=== PATIENT | female | born 1950 | race Caucasian/White ===

== ENCOUNTER → 2016-09-16 | Outpatient (CLI) | payer BC ==
[~2016-09-16] MED LIST: ALBUAER19 INH; DULO-24 PO; ESTR1CRE PV; IMT100 PO; LAMO25TA PO; MONT1TAB3 PO; WLLSR/100 PO; ZOLP10TA PO
--- NOTE | 2016-09-16 15:10 | MAMMOGRAPHY REPORT ---
BILATERAL DIGITAL SCREENING MAMMOGRAM WITH CAD: 09/16/2016 CLINICAL HISTORY: Routine screening. Patient has no complaints. TECHNIQUE: Current study was also evaluated with a Computer Aided Detection (CAD) system. Bilatera l CC and MLO views were obtained. COMPARISON: Comparison is made to exams dated: 08/30/2015 mammogram, 07/31/2014 mammogram, 06/14/2013 ma mmogram, 05/31/2012 mammogram, 05/22/2011 mammogram, and 05/21/2010 mammogram - [facility] nt. BREAST COMPOSITION: There are scattered areas of fibroglandular density in both breasts. FINDINGS: No suspicious masses, calcifications, or areas of architectural distortion are noted in e ither breast. There has been no significant interval change compared to prior exams. IMPRESSION: ACR BI-RADS CATEGORY 1: NEGATIVE There is no mammographic evidence of malignancy. A 1 year screening mammogram is recommended. The p atient will receive written notification of the results. Approximately 10% of breast cancers are not detected with mammography. A negative mammographic repor t should not delay biopsy if a clinically suggestive mass is present. Lenora Nunez M.D. /:09/16/2016 14:18:40 Home Visitor: Courtney ANTOINE(Maria G)(M), [facility] letter sent: Normal 1/2 BI-RADS Code: ACR BI-RADS Category 1: Negative
== END | disposition home or self-care (01) ==
LOC: C.MAMM 13:04
PROVIDERS: ATTEND Obstetrics & Gynecology
DX: Z12.31 Encounter for screening mammogram for malignant neoplasm of breast (principal)

== ENCOUNTER → 2017-12-09 | Outpatient (CLI) | payer OTHER ==
[~2017-12-09] MED LIST changes: -ESTR1CRE PV; -ZOLP10TA PO
--- NOTE | 2017-12-09 11:10 | DIAGNOSTIC IMAGING REPORT ---
LEG LENGTH STUDY (WHOLE LEG) CLINICAL HISTORY: LEG LENGTH DISCREPANCY mildly COMPARISON STUDY: None FINDINGS: 1. Maximum right leg length 84.9 cm. Maximum leg length on the left 86.0 cm. Discrepancy is 11 mm with the right leg being shorter than the left. Left femoral length is 47.1 cm. The right measures 46.2 cm. Differences 9 mm. IMPRESSION: 1. maximum total left leg length 86.0 cm. 2. Maximum total right leg length 84.9 cm. 3. Maximum discrepancy is 1.1 cm. The bulk of this discrepancy is a differential of the right femoral length which measures 9 mm shorter than that of the left. The above report was generated using voice recognition software. It may contain grammatical, syntax or spelling errors. Electronically signed by: Rustam Pritchard M.D. 12/09/2017 11:09 AM Dictated Date/Time: 12/09/2017 11:03 AM
== END | disposition home or self-care (01) ==
LOC: C.RADBC 10:49
PROVIDERS: ATTEND Physician Assistant
DX: M21.751 Unequal limb length (acquired), right femur (principal)

== ENCOUNTER 2018-04-01 05:01 | Inpatient (IN) ==
--- NOTE | 2018-03-11 10:48 | Anesthesiology Consultation ---
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 Cortez; no further evaluation needed prior regarding this but for anesthesia to note AM DOS. - ? syncopal episodes prior to 12/2017 (noted in 2013 per chart review). Patient unable to recall the events leading up to the 12/2017 fall; patient was kept overnight to monitor patient on hospital monitor to evaluate for arrhythmias (no mention of abnormalities noted per [facility] discharge summary). Intermittent episodes of syncope noted per chart review (evaluated by cardio/neuro in 2013- etiology felt to be vasovagal; ECHO was done 2013 and noted to not have any significant abnormalities"). Patient sustained olecranon fracture s/p fall . Possible very small subdural bleed on CT 01/12 (recommendation was for further evaluation with followup MRI 01/11/18 which did not show any acute intracranial findings/subdural bleed; did redemonstrate scalp hematoma). S/P olecranon fracture ORIF 01/24/18 at [facility] without issue. - PCP= 01/20/18= seen prior to olecranon fracture ORIF done 01/2018; "from a general medical standpoint, patient cleared for surgery." Chart Review Chart Review: Acceptable Risk for Surgery and Patient NOT seen in Pre Admission Testing Teaching & Discussion Pre-Anesthesia Teaching/Discussion Notes: Instructed NPO after midnight before surgery,except medications with 15 cc of water. Medication instructions provided according to the PAT guidelines. History Surgery Operation Date: 04/01/18 10:40 Proposed Procedures p Right Total Hip Arthroplasty - Yaya Zarate MD Height/Weight Height: 5 ft 8 in Weight: 58.5 kg Allergies Allergy/AdvReac Type Severity Reaction Status Date / Time Sulfa (Sulfonamide Allergy Mild UNKNOWN Verified 03/10/18 12:29 Antibiotics) Medications Home Medications Medication Instructions Recorded Confirmed Last Taken biotin 5,000 mcg PO QAM 01/21/18 03/10/18 01/23/18 09:00 bupropion HCl [Wellbutrin SR] 100 mg PO QAM 01/21/18 03/10/18 01/24/18 08:30 duloxetine 40 mg PO QAM 01/21/18 03/10/18 01/24/18 08:00 flaxseed oil 1,400 mg MISCELLANEOUS QAM 01/21/18 03/10/18 01/23/18 09:00 lamotrigine [Lamictal] 25 mg PO QAM 01/21/18 03/10/18 01/24/18 08:00 montelukast [Singulair] 10 mg PO QAM PRN 01/21/18 03/10/18 Unknown sumatriptan succinate [Imitrex 4 mg SUBCUT QDD PRN 01/21/18 03/10/18 Unknown STATdose Refill] sumatriptan succinate [Imitrex] 100 mg PO QDD PRN 01/21/18 03/10/18 01/20/18 17: 00 vitamin B complex 1 tab PO QAM 01/21/18 03/10/18 01/23/18 09:00 albuterol sulfate 1 puff INHALATION Q6H PRN 03/10/18 03/10/18 Unknown rqxhqtf-khwyjzdisdiev-rvhhfxnz 2 tab PO Q6H PRN 03/10/18 03/10/18 Unknown [Excedrin Migraine] calcium carbonate-vitamin D3 1 tab PO QAM 03/10/18 03/10/18 Unknown [Calcium 500 + D] oxycodone-acetaminophen 1 tab PO Q6H PRN 03/10/18 03/10/18 Unknown Past Medical History Medical History Asthma STABLE Migraines ON LAMICTAL; DENIES SEIZURE HISTORY Anxiety Osteoarthritis Depression GERD (gastroesophageal reflux disease) CONTROLLED Hx of endometriosis Syncope ? SYNCOPAL EPISODE PRIOR TO 12/2017 FALL; PATIENT UNABLE TO RECALL EVENTS LEADING UP TO FALL FROM STAIRS PER [facility] DISCHARGE SUMMARY. KEPT PATIENT OVERNIGHT TO MONITOR PATIENT ON MONITOR FOR ARRHYTHMIAS (NO MENTION OF ABNORMALITIES NOTED PER [facility] DISCHARGE SUMMARY). INTERMITTENT EPISODES OF SYNCOPE NOTED PER CHART REVIEW (PER CARDIO EVALUATION IN 2013, FELT TO BE VASOVAGAL ETIOLOGY; ECHO WAS ORDERED AND NOTED TO HAVE NO SIGNIFICANT ABNORMALITIES IN 2013). NO ISSUES SINCE ADMISSION PER PATIENT AT PAT VISIT Valvular disease MILD TR/MR Past Family History Family History Father Family hx of colon cancer Other Family history non-contributory Past Surgical History Surgical History History of hysterectomy TOTAL Status post left hip replacement History of open reduction and internal fixation (ORIF) procedure RIGHT OLECRANON ORIF= 01/24/18= GRADE 1 VIEW, MAC#3, ETT 7.0 AT [facility]* History of tonsillectomy History of total shoulder replacement RIGHT Past Anesthesia History No Hx of Anesthesia Complications Patient denies family history of issues with anesthesia complications. History of PONV No Motion Sickness Screening History of Motion Sickness: No Social History Smoking Status: Never smoker Do You Dip or Chew Tobacco: No Hx Alcohol Use: Yes Alcohol type: beer, wine and hard liquor alcohol intake frequency: a few times a month Hx Substance Use: No substance use type: prescription drug Exercise / Class Metabolic Activity II 4-5 Yardwork/Stairs/Walk up hill Review of Systems Patient reports RUE s/p fracture repair. Patient denies chest pain, shortness of breath, dyspnea on exertion, wheezing, palpitations. Physical Exam Vital Signs VITALS BP 130/88 P 85 TEMP 98.5 RESP 20 SP02 95%RA Patient advised to followup with PCP regarding elevated BP. Full neck and c-spine range of motion. Full TMJ range of motion. TMD 2 finger breaths (small chin) Mallampati Score 3 Dentition: intact Lungs: clear throughout to auscultation Cardiac: regular rate and rhythm, no murmurs noted Spine: normal Carotid arteries: negative bruit Extremities: no edema Testing Electrocardiogram Date: 01/11/18 Findings: + NSR @ (81) Echocardiogram Date: 08/16/13 EF 60-65%, No RWMA. Mild TR/MR. Other Testing Chest CT= 01/11/18 = No acute intrathoracic abnormality identified. No pneumothorax or acute displaced rib fracture identified. Healed remote fracture deformities of the posterior left eighth, ninth and tenth ribs. Multiple opacified venous collateral vessels about the left upper chest and lower neck with apparent high-grade stenosis about the distal left subclavian vein. Laboratory Results 03/11/18 10:57 03/11/18 10:57 Blood Type O Positive 03/11/18 10:57 Antibody Screen NEGATIVE 03/11/18 10:57 PT 11.3 Seconds (9.0-12.0) 03/11/18 10:57 INR 1.1 (0.9-1.1) 03/11/18 10:57 APTT 26.4 Seconds (21.0-31.0) 03/11/18 10:57
--- NOTE | 2018-03-11 10:55 | PAT Medication Instructions ---
Medication Instructions Date of Service March 11, 2018 Home Medications biotin 5,000 mcg PO QAM bupropion HCl [Wellbutrin SR] 100 mg PO QAM duloxetine 40 mg PO QAM flaxseed oil 1,400 mg MISCELLANEOUS QAM lamotrigine [Lamictal] 25 mg PO QAM montelukast [Singulair] 10 mg PO QAM PRN sumatriptan succinate [Imitrex 4 mg SUBCUT QDD PRN sumatriptan succinate [Imitrex] 100 mg PO QDD PRN vitamin B complex 1 tab PO QAM 01/21/18 albuterol sulfate 1 puff INHALATION Q6H PRN [id number]-zwfqgpltdtsup-cpdaqoqa 2 tab PO Q6H PRN calcium carbonate-vitamin D3 1 tab PO QAM oxycodone-acetaminophen 1 tab PO Q6H PRN Per surgeon's instructions ovunyqf-dkcsmiigcmiyg-yvqfvktl 2 tab PO Q6H PRN Hold 2 weeks prior to surgery flaxseed oil 1,400 mg MISCELLANEOUS QAM biotin 5,000 mcg PO QAM Hold the morning of surgery calcium carbonate-vitamin D3 1 tab PO QAM vitamin B complex 1 tab PO QAM montelukast [Singulair] 10 mg PO QAM PRN Take morning of surgery Take the following medication the morning of surgery with a sip of water, OTHERWISE NOTHING TO EAT OR DRINK AFTER MIDNIGHT: bupropion HCl [Wellbutrin SR] 100 mg PO QAM duloxetine 40 mg PO QAM lamotrigine [Lamictal] 25 mg PO QAM sumatriptan succinate [Imitrex 4 mg SUBCUT QDD PRN (if needed) sumatriptan succinate [Imitrex] 100 mg PO QDD PRN (if needed) albuterol sulfate 1 puff INHALATION Q6H PRN (if needed) oxycodone-acetaminophen 1 tab PO Q6H PRN (okay to take up to 4 hours prior to surgery if needed) Take evening before surgery sumatriptan succinate [Imitrex 4 mg SUBCUT QDD PRN(if needed) sumatriptan succinate [Imitrex] 100 mg PO QDD PRN (if needed) albuterol sulfate 1 puff INHALATION Q6H PRN (if needed) oxycodone-acetaminophen 1 tab PO Q6H PRN (if needed) Other Notes If you have any questions please call us at [phone] or [phone] or [phone] or [phone]
[2018-03-11 12:38] LABS: Basophils # (auto) 0.08 K/uL (0-0.2); Basophils % (auto) 1.8 %; Eosinophils # (auto) 0.17 K/uL (0-0.5); Eosinophils % (auto) 3.8 %; Hematocrit (blood only) 42.2 % (37-47); Hemoglobin 13.8 g/dL (12.0-16.0); Immature Granulocytes # (auto) 0.01 K/uL (0.00-0.02); Immature Granulocytes % (auto) 0.2 %; Lymphocytes # (auto) 1.58 K/uL (1.2-3.4); Mean Corpuscular Hgb Conc 32.7 g/dL (32-36); Mean Corpuscular Volume 92.1 fL (80-100); Mean Platelet Volume 10.5 fL (7.4-10.4); Monocytes # (auto) 0.31 K/uL (0.11-0.59); Monocytes % (auto) 6.9 %; Neutrophils # (auto) 2.36 K/uL (1.4-6.5); Neutrophils % (auto) 52.3 %; Platelet Count 303 K/uL (130-400); RDW Standard Deviation 43.9 fL (36.4-46.3); Red Blood Count 4.58 M/uL (4.2-5.4); White Blood Count 4.51 K/uL (4.8-10.8)
[2018-03-11 12:45] LABS: BUN Creatinine Ratio 21.5 (10-20); Blood Urea Nitrogen 15 mg/dl (7-18); C Reactive Protein < 0.29 mg/dl (0-0.29); Calcium 9.2 mg/dl (8.5-10.1); Carbon Dioxide 30 mmol/L (21-32); Chloride 105 mmol/L (98-107); Est GFR (African American) 104.6; Est GFR (Non-African American) 90.3; Glucose 84 mg/dl (70-99); Potassium 3.7 mmol/L (3.5-5.1); Sodium 141 mmol/L (136-145)
[2018-03-11 12:57] LABS: INR 1.1 (0.9-1.1); Partial Thromboplastin Time 26.4 Seconds (21.0-31.0); Prothrombin Time 11.3 Seconds (9.0-12.0)
--- NOTE | 2018-03-26 10:33 | History and Physical Report ---
DATE OF ADMISSION: 04/01/2018 CHIEF COMPLAINT: Right hip pain. HISTORY OF PRESENT ILLNESS: The patient is a 67-year-old white female who presents for surgical treatment of right hip. She is referred by my partner, Dr. Baregr who recently treated for an elbow fracture. She has about a 3-year history of increasing right hip pain and discomfort. She has been through extensive conservative treatment including various medicines as well as pain clinic management. She had multiple different injections in her back and spine and hip area without much relief. She describes mostly buttock pain, lateral hip pain, groin pain radiating down into her thigh to her knee. The more she walks, the more it hurts. She limps pretty much all the time. She has nighttime discomfort. She has difficulty putting her shoes and socks on. She has noticed a significant leg length inequality. She now would like to have her hip fixed. Of note, the patient does have a history of a left hip replacement by Dr. Manning 10 years ago. She feels like she does have a significant leg length inequality. She did have one dislocation 2 years ago without further episodes of instability. She has been careful with this. The patient also had her recent fall and broke her elbow and had surgery done by Dr. Barger for an olecranon fracture. She is about 2 months out from that and recovered pretty well. PAST MEDICAL HISTORY: 1. Asthma. 2. Anxiety/depression. 3. Back pain. PAST SURGICAL HISTORY: Previous surgeries include: 1. Ovary and uterus removal in 2002. 2. Left hip replacement done by Dr. Manning, 04/12/2008. 3. Right elbow triceps repair done by Dr. Barger, 01/24/2018. 4. Right shoulder replacement done by Dr. Chahal, 06/08/2014. ALLERGIES: SULFA. CURRENT MEDICINES: 1. Lamictal 25 mg. 2. Wellbutrin 100 mg. 3. Fluoxetine 40 mg a day. 4. Singulair 10 mg a day. 5. Sumatriptan 100 mg as needed for headache. SOCIAL HISTORY: A 67-year-old white female. She is . Lives alone. Does not smoke. One drink per week. FAMILY HISTORY: Significant for heart disease and blood clots, multiple myeloma and colon cancer. REVIEW OF SYSTEMS: Negative for diabetes, neurologic problems, vascular problems or bleeding disorders. No history of DVT or PE. PHYSICAL EXAMINATION: GENERAL: Reveals a healthy, pleasant, thin female. Looks to be in good health. HEENT: Benign. NECK: Supple. No lymphadenopathy. LUNGS: Clear to auscultation. HEART: Regular rate and rhythm. ABDOMEN: Soft, nontender, nondistended. EXTREMITIES: Grossly neurovascularly intact except as follows: Examination of the right hip reveals patient walks with an antalgic gait. She does have about a cm leg length discrepancy, right side shorter than left. She seems to have a little bit of pelvic obliquity as well. She has a very stiff hip with internal rotation to -10, external rotation at 20 degrees. Negative straight leg raise. She is neurologically intact. X-RAYS: X-rays of the right hip were reviewed. Shows advanced right hip DJD. She has complete loss of her joint space with cystic changes of the femoral and acetabular side. ASSESSMENT: A 67-year-old white female now about 2 months out from a triceps repair for olecranon fracture with advanced right hip degenerative joint disease. She has failed conservative treatment and would like to have her right hip replaced. PLAN: We are going to proceed with right total hip replacement. The risks and benefits of this procedure were explained to the patient including but not limited to DVT, PE, , infection, neurological injury, vascular injury, bleeding problem, pain, limited range of motion, stiffness, failure to relieve her symptoms, incomplete relief of symptoms, need for further surgery in future, fracture, leg length inequality, nerve palsy, dislocation, etc. The patient understands and desires to proceed. Informed consent was obtained. We will try and make her leg lengths as equal as possible. She does have some pelvic obliquity which makes things a little bit more challenging. She did have an episode of instability in the left hip, but nothing since this episode 2 years ago. We will do the best we can stabilize her hip as well. As far as discharge plans, she is planning to be discharged to home with some home health and some friends' assistance.
[2018-04-01] MEDS ORDERED: TRANEXAMIC ACID 1,000 MG **IV Pre-op IV SCH (06:00)
[2018-04-01] MEDS ORDERED: ACETAMINOPHEN 500 MG TAB PO SCH (06:00)
[2018-04-01] MEDS ORDERED: METOCLOPRAMIDE HCL 10 MG TABLET PO SCH (06:00)
[2018-04-01] MEDS ORDERED: CEFAZOLIN 2000MG 2,000 MG/15 ML SYR IV SCH (06:00)
[2018-04-01] MEDS ORDERED: SCOPOLAMINE 1.5 MG TDSY TD SCH (06:00)
[2018-04-01] MEDS ORDERED: GABAPENTIN 300 MG PO SCH (06:00)
[2018-04-01] MEDS ORDERED: FAMOTIDINE 20 MG TAB PO SCH (06:00)
[2018-04-01] MEDS ORDERED: LR 60ML/HR IV SCH (06:00)
[2018-04-01] MEDS: LR 500ML BOLUS, THEN 15ML/HR IV SCH ×4 (06:06→21:40)
[2018-04-01] MEDS ORDERED: MIDAZOLAM HCL 1 MG/ML 2ML VIAL ONE ×2 (06:23→07:15)
[2018-04-01] MEDS ORDERED: MoRPHine SULFATE PF 1 MG/ML 10 ML AMP/VIAL ONE (06:24)
[2018-04-01] MEDS ORDERED: BUPIVACAINE 0.5 % 5 MG/1 ML PF 10ML VIAL ONE (06:29)
[2018-04-01] MEDS ORDERED: BACITRACIN INJ 50,000 UNIT VIAL ONE (06:36)
[2018-04-01] MEDS ORDERED: BUPIVACAINE/EPINEPHRINE 0.5% MPF 1:200,000 30 ML VIAL ONE (06:36)
--- NOTE | 2018-04-01 06:52 | History & Physical Bridge Note ---
Date of Service April 01, 2018 History & Physical Bridge Note I have examined the patient, reviewed the History & Physical and in the interval since the performance of the History & Physical I have noted the following changes of clinical significance: no changes noted
[2018-04-01] MEDS ORDERED: LACTATED RINGER'S 500 ML IV PRN (06:53)
[2018-04-01] MEDS ORDERED: NALBUPHINE HCL INJ 10 MG/ML AMP IV PRN (06:53)
[2018-04-01] MEDS ORDERED: NALOXONE HCL 0.08 MG in SYRINGE 1.8 ML IV PRN (06:53)
[2018-04-01] MEDS ORDERED: NALOXONE HCL 1 MG in SODIUM CHLORIDE 0.9% 1000ML 1,000 ML IV PRN (06:53)
[2018-04-01] MEDS ORDERED: ePHEDrine sulfate 50 MG/ML AMP IV PRN (06:53)
[2018-04-01] MEDS ORDERED: MEPERIDINE HCL 25 MG/ML CARP IV PRN (06:53)
[2018-04-01] MEDS ORDERED: DiphenhydrAMINE HCL 50 MG/ML VIAL IV PRN (06:53)
[2018-04-01] MEDS ORDERED: MoRPHine SULFATE PF 1 MG/ML 10 ML AMP/VIAL INT SPINAL ONE (06:53)
[2018-04-01] MEDS ORDERED: ONDANSETRON INJ 2 MG/ML 2 ML VIAL IV PRN (06:53)
[2018-04-01] MEDS ORDERED: NALOXONE HCL 0.4 MG/1 ML VIAL/CARP IV PRN (06:53)
[2018-04-01] MEDS ORDERED: NO NARCOTICS OR SEDATIVES SCH (07:00)
[2018-04-01] MEDS ORDERED: SODIUM CHLORIDE 0.9% 1000ML 1,000 ML IV SCH (07:00)
[2018-04-01] MEDS ORDERED: LIDOCAINE HCL 2% 2 ML VIAL/AMP(20MG/ML) INFIL ONE (07:33)
[2018-04-01] MEDS ORDERED: PROPOFOL IV EMULSION 10 MG/ML 20 ML VIAL IV ONE (07:33)
[2018-04-01] MEDS ORDERED: fentaNYL citrate 100 MCG/2 ML VIAL ONE (07:34)
[2018-04-01] MEDS ORDERED: PHENYLEPHRINE 100MCG/ML 5ML SYR ONE (08:10)
--- NOTE | 2018-04-01 08:36 | Post Operative Brief Note ---
Immediate Post Op Note v1 Date of Surgery April 01, 2018 Pre & Post Diagnosis Operation Date: 04/01/18 07:00 Pre-Op Diagnosis: Right Hip Degenerative Joint Disease Post-Op Diagnosis: Right Hip Degenerative Joint Disease Procedure Operation Date: 04/01/18 07:00 Actual Procedures p Right Total Hip Replacement(Right) - Yaya Zarate MD Surgeon Yaya Zarate MD [id number] Armor Crewman [place], PAC Estimated Blood Loss 300 Findings Consistent with Post-Op Diagnosis Fluids 1600 cc Specimens Right Femoral Head Drains Wilson Catheter Anesthesia Type Spinal MAC Complications Small Crack of Medial Calcar treated with Dall-Miles Cable. Disposition Accompanied Patient To Recovery: Yes Disposition: Recovery Room
--- NOTE | 2018-04-01 09:32 | XRay Report ---
AP PELVIS, CROSSTABLE LATERAL RIGHT HIP History: Right total hip arthroplasty. Degenerative arthritis. Postop. FINDINGS: The patient is status post a right total hip arthroplasty. The hardware is intact. No fract ure or dislocation. Proximal femoral cerclage wire is in place. Evidence for prior left total hip art hroplasty. IMPRESSION: Right total hip arthroplasty. No evidence for hardware complication Electronically signed by: Pedro Pierce M.D. 04/01/2018 9:31 AM
--- NOTE | 2018-04-01 10:25 | Anesthesiology Progress Note ---
Date of Service April 01, 2018 Anesthesia Post Procedure Vital Signs Vital Signs: Temp Pulse Pulse Resp BP BP Pulse Ox 04/01/18 10:15 72 20 121/77 100 04/01/18 10:00 72 14 115/69 100 04/01/18 09:45 97.3 F L 74 16 111/72 100 04/01/18 09:35 70 12 102/69 100 04/01/18 09:25 72 18 105/66 100 04/01/18 09:15 71 21 107/65 100 04/01/18 09:05 71 18 100/60 100 04/01/18 08:55 70 18 94/71 L 99 04/01/18 08:45 70 12 104/57 L 100 04/01/18 08:35 97.2 F L 70 16 89/63 L 98 04/01/18 05:44 98.1 F 80 18 137/77 97 Pain Intensity Right Hip: Pain Intensity: 0 Notes Mental Status: alert / awake / arousable and participated in evaluation Patient Amnestic to Procedure: Yes Nausea / Vomiting: adequately controlled Pain: adequately controlled Airway Patency, RR, SpO2: stable & adequate BP & HR: stable & adequate Hydration State: stable & adequate Neuraxial Anesthesia: was administered and sensory block is resolving Anesthetic Complications: no major complications apparent and Pt Satisfied with anesthetic care
[2018-04-01] MEDS ORDERED: ALBUTEROL HFA 8 GM INHALER INH PRN (10:39)
[2018-04-01] MEDS ORDERED: METOCLOPRAMIDE HCL INJ 5 MG/ML 2 ML VIAL IV PRN (10:39)
[2018-04-01] MEDS ORDERED: ALUMINUM/MAGNESIUM SUSP 30 ML UDC PO PRN (10:39)
[2018-04-01] MEDS ORDERED: MONTELUKAST SODIUM 10 MG TABLET PO PRN (10:39)
[2018-04-01] MEDS ORDERED: NON-FORMULARY MEDICATION (Biotin [Biotin] 5,000 MCG) PO SCH (10:39)
[2018-04-01] MEDS ORDERED: FLAXSEED OIL 1400 MG MS SCH (10:39)
[2018-04-01] MEDS ORDERED: BISACODYL 10 MG SUPP PR PRN (10:39)
[2018-04-01] MEDS ORDERED: SUMAtriptan succinate 100 MG TAB PO PRN (10:39)
[2018-04-01] MEDS ORDERED: MAGNESIUM HYDROXIDE SUSP 30 ML UDC PO PRN (10:39)
[2018-04-01] MEDS: SODIUM CHLORIDE 0.9% 1000ML 1,000 ML IV SCH ×2 (11:43→21:44)
[2018-04-01] MEDS: DULOXETINE HCL 20 MG CAP PO SCH (12:18)
[2018-04-01] MEDS: MULTIVITAMIN TAB PO SCH (12:19)
[2018-04-01] MEDS: CALCIUM 600MG + VIT D 400 IU TAB PO SCH (12:19)
[2018-04-01] MEDS: PANTOprazole 40 MG TAB PO SCH (12:19)
[2018-04-01] MEDS: DOCUSATE SODIUM 100 MG CAP PO SCH ×2 (12:19→21:41)
[2018-04-01] MEDS: BuPROPion SR 100 MG TABCR PO SCH (12:19)
[2018-04-01] MEDS: VITAMIN B COMPLEX TAB PO SCH (12:19)
[2018-04-01] MEDS: lamoTRIgine 25 MG TAB PO SCH (12:19)
[2018-04-01] MEDS: KETOROLAC TROMETHAMINE 15 MG/ML VIAL IV SCH ×2 (12:20→18:25)
--- NOTE | 2018-04-01 13:55 | Operative Report ---
DATE OF OPERATION: 04/01/2018 SURGEON: Yaya Zarate MD TAKE AWAY ATTENDANT: HUBER Zhou PREOPERATIVE DIAGNOSIS: Right hip degenerative joint disease with leg length discrepancy. POSTOPERATIVE DIAGNOSIS: Right hip degenerative joint disease with leg length discrepancy. PROCEDURE PERFORMED: Right ceramic on highly cross-linked polyethylene total hip arthroplasty. COMPLICATIONS: Medial calcar fracture of the femoral neck, treated with Dall-Miles cerclage cable. ESTIMATED BLOOD LOSS: 300 mL. FLUID REPLACEMENT: 1600 mL of crystalloid fluid replacement. ANESTHESIA: Spinal. DRAINS: None. SPECIMENS: Right femoral head sent for pathology. OPERATIVE INDICATIONS: The patient is a 67-year-old fairly active, thin female who has had a long history of joint problems. She had a left hip replaced 10 years ago. Over the past 3 years, she has developed increased pain and discomfort in her right hip. The pain has become more debilitating. X-rays show advanced hip DJD. She failed conservative treatment and elected to proceed with total hip arthroplasty. OPERATIVE FINDINGS: Operative findings revealed advanced right hip DJD. She had advanced grade 4 change of the femoral head and acetabulum. She had a large hip joint effusion. She had retroversion of her acetabulum. OPERATIVE IMPLANTS: Operative implants consisted of: 1. Biomet G7 size 52 mm acetabular shell. 2. A 6.5 cancellous acetabular screws, 1 at 35 mm in length and 1 at 20 mm in length. 3. An apex hole eliminator. 4. A highly cross-linked polyethylene liner with a 52 mm outer diameter, 36 mm inner diameter with a canada placed inferior and posterior. 5. DePuy size 10 KLA/coxa vara femoral stem. 6. A +5/36 mm ceramic articular ball. 7. 2.0 Dall-Miles cable x1. OPERATIVE PROCEDURE: The patient was taken to the operating room, identified and placed on the operative table in supine position. All contact areas were appropriately padded. IV antibiotics were provided by anesthesia team. A spinal anesthetic had been implemented in the holding area. Wilson catheter was placed in sterile fashion. The patient was then placed in the left lateral decubitus position. An axillary roll was placed. [facility] hip positioner was used for positioning. The right hip and leg were then prepped and draped in usual sterile fashion. Posterolateral approach to the right hip was then performed through a curvilinear incision, centered over the greater trochanter. Sharp dissection was carried out through subcutaneous tissue down to the level of the IT band and gluteal fascia. The IT band and gluteal fascia was incised longitudinally in line with skin incision. The underlying greater trochanteric bursa was excised. The piriformis and external rotators were tagged and taken off the posterior aspect of the femur. Great care was taken throughout the procedure to protect the sciatic nerve at all times. Posterior capsulotomy was then performed leaving a large flap for later repair. Hip was internally rotated and dislocated. Femoral neck osteotomy cut was made with the final cut about a cm above the lesser trochanter. Femoral head was removed and sent for pathology. The femur was retracted anteriorly and attention was then drawn to the acetabulum. The acetabulum labrum was excised. The pulvinar fat was excised. She did have a retroverted acetabulum. Sequential reaming of the acetabulum was then performed beginning with size 43 and progressing up to 51. I did just touch the entrance with a 52 reamer. A 52 mm Biomet G7 acetabular shell was then placed in about 40 degrees of lateral opening and 20 degrees of anteversion. There was some uncoverage posteriorly due to retroversion in the acetabulum and the posterior acetabular deficiency. I then fixed the acetabulum with 2 screws. A large anterior osteophyte was removed. A trial liner was placed. Attention was then drawn to the femur. The proximal femur was entered with cookie cutter followed by canal finder. I broached beginning with a size 8 and progressed up to 9. I eventually did place a 10 broach. Upon doing this, we did just a small crack in the medial calcar. I examined this extensively and there was no propagation of the fracture. I did remove the stem and placed a 2.0 mm Dall-Miles cable around the base of the neck to prevent propagation of the fracture. We then placed the implant back in and trialed the hip. The +5 articular ball seemed to recreate leg lengths appropriately and soft tissue tension appropriately. The hip was fully stable in full extension and external rotation, and flexion to 90 degrees, internal rotation to 60 degrees. I did elect to place a canada inferior and posterior in order to maximize her stability as she had history of 1 dislocation of the left hip. We elected to place these implants. All trial implants were removed. An apex hole eliminator was placed. A highly cross-linked polyethylene liner with a canada was placed inferior and posterior. A DePuy Corail size 10 KLA/coxa vara femoral stem was impacted in position. I examined this fracture and there were no signs of enlargement or propagation. A Dall-Miles cable was nicely placed. A +5/36 mm ceramic articular ball was placed. Hip was located and once again found to be stable. Attention was then drawn toward closing. The wound was irrigated with copious amounts of pulsatile lavage solution. I did inject locally with 60 mL of 0.5% Marcaine with epinephrine. Posterior capsule and external rotators were repaired through drill holes in the posterior trochanter with #2 Ti-Cron suture. The IT band and gluteal fascia were then closed with #1 PDS suture in running fashion. The subcutaneous tissues were closed with 2 layers with the deep layer #1 Vicryl suture and subcutaneous tissue with 2-0 Dexon suture in a buried interrupted fashion. The skin was closed with skin chase. The leg was then cleaned, dried and a sterile dressing of Xeroform, 4 x 4s, ABD pad and foam tape was applied. The patient then transferred to the recovery room in stable condition. The patient tolerated the procedure well with no complications. All needle and sponge counts were correct at the end of the operation. I attest to the content of the Intraoperative Record and any orders documented therein. Any exception s are noted below.
--- NOTE | 2018-04-01 14:22 | Progress Note ---
DATE: 04/01/2018 SUBJECTIVE: A 67-year-old white female postop from a right total hip replacement. She is doing well. Really not having much pain yet. No chest pain or shortness of breath. Not feeling dizzy or lightheaded. OBJECTIVE: VITAL SIGNS: Temperature is 36.6. Vital signs stable. GENERAL: Physical examination reveals a healthy, pleasant middle-aged female. She is lying in bed, looks quite comfortable. LUNGS: Clear to auscultation. HEART: Regular rate and rhythm. ABDOMEN: Soft, nontender, nondistended. EXTREMITIES: Grossly neurovascularly intact except as follows: Examination of the right lower extremity reveals the leg to be well aligned. Leg lengths are equal. Her hip is located. Dressing is clean, dry and intact. Thigh is soft and supple. She can dorsiflex and plantarflex her foot appropriately. She is neurologically intact. X-RAYS: X-rays of the right hip from recovery room reviewed. It shows right uncemented total hip arthroplasty. Components looked to be in good position. No signs of problems. No visible fractures. She does have a cerclage cable around the proximal femur. ASSESSMENT: A 67-year-old white female postop from a right total hip replacement complicated by a small calcar fracture at the femoral neck without propagation treated with cerclage cable. She is doing well. Pain is controlled. Hip is located. She is neurologically intact. This fracture is not going to change the recovery or rehab and it is stable and we can let her weightbear as tolerated. She will need to obey hip precautions. I discussed this with her this afternoon on rounds and answered all questions. PLAN: 1. DVT prophylaxis including thigh-high TEDs, SCDs, and aspirin twice a day. 2. PT/OT. Weight bear as tolerated. Right total hip protocol. 3. Pain control, doing well with current pain regimen. 4. IV antibiotics x24 hours. 5. Disposition: She is planning to be discharged to home with some home health once adequately recovered. CRYS
[2018-04-01] MEDS: CEFAZOLIN 2000MG 2,000 MG/15 ML SYR IV SCH ×2 (14:27→22:26)
[2018-04-01] MEDS: ACETAMINOPHEN 500 MG TAB PO SCH ×2 (14:27→21:41)
[2018-04-01] MEDS ORDERED: TRANEXAMIC ACID 1,000 MG in 0.9 % SODIUM CHLORIDE 100 ML IV ONE (16:00)
[2018-04-01] MEDS: CHECK SCOPOLAMINE PATCH PLACEMENT SCH (18:23)
[2018-04-01] MEDS: FERROUS GLUCONATE 324 MG TAB PO SCH (18:24)
[2018-04-01] MEDS: ASPIRIN 81 MG ECTAB PO SCH (21:40)
[2018-04-01] MEDS: SENNA 8.6 MG TAB PO SCH (21:41)
[2018-04-02] MEDS ORDERED: DC INTRASPINAL MORPHINE SCH (00:53)
[2018-04-02] MEDS ORDERED: HYDROmorphone INJ 0.5 MG/0.5 ML SYR IV PRN (00:54)
[2018-04-02] MEDS ORDERED: ONDANSETRON INJ 2 MG/ML 2 ML VIAL IV PRN (00:54)
--- NOTE | 2018-04-02 06:17 | Progress Note ---
DATE: 04/02/2018 SUBJECTIVE: A 67-year-old white female postop day #1 from right hip replacement. She is doing pretty well. Hip is pretty sore this morning. No chest pain or shortness of breath. Not feeling dizzy or lightheaded. OBJECTIVE: VITAL SIGNS: Temperature 36.8. Vital signs stable. GENERAL: Physical examination shows a pleasant, middle-aged female. She is lying in bed, looks pretty comfortable. EXTREMITIES: Examination of the right hip and leg reveals the leg lengths were equal. Her thigh is soft and supple. Dressing is clean, dry and intact. Fairly minimal swelling. She is neurologically intact. LABORATORY DATA: Labs are pending. ASSESSMENT: A 67-year-old white female postop day #1 from right hip replacement, doing reasonably well. Pain level is pretty much expected. She is neurologically intact. Hip is located. PLAN: 1. DVT prophylaxis including thigh-high TEDs, SCDs, and aspirin twice a day. 2. PT/OT. Weight bear as tolerated. Right total hip protocol. She can weightbear as tolerated. 3. Pain control. Doing reasonably well with current pain regimen. 4. Disposition: She is planning to be discharged to home with some home health and some friends' assistance once medically stable and safe.
[2018-04-02] MEDS: ACETAMINOPHEN 500 MG TAB PO SCH ×3 (06:20→21:42)
[2018-04-02] MEDS: KETOROLAC TROMETHAMINE 15 MG/ML VIAL IV SCH ×4 (06:20→17:29)
[2018-04-02 06:39] LABS: Basophils # (auto) 0.02 K/uL (0-0.2); Basophils % (auto) 0.2 %; Eosinophils # (auto) 0.05 K/uL (0-0.5); Eosinophils % (auto) 0.6 %; Hematocrit (blood only) 35.5 % (37-47); Hemoglobin 11.6 g/dL (12.0-16.0); Immature Granulocytes # (auto) 0.01 K/uL (0.00-0.02); Immature Granulocytes % (auto) 0.1 %; Lymphocytes # (auto) 0.88 K/uL (1.2-3.4); Lymphocytes % (auto) 10.9 %; Mean Corpuscular Hgb Conc 32.7 g/dL (32-36); Mean Corpuscular Volume 90.1 fL (80-100); Mean Platelet Volume 10.7 fL (7.4-10.4); Monocytes # (auto) 0.75 K/uL (0.11-0.59); Monocytes % (auto) 9.3 %; Neutrophils # (auto) 6.33 K/uL (1.4-6.5); Neutrophils % (auto) 78.9 %; Platelet Count 217 K/uL (130-400); Red Blood Count 3.94 M/uL (4.2-5.4); White Blood Count 8.04 K/uL (4.8-10.8)
[2018-04-02] MEDS ORDERED: Nursing to Pharmacy Communication ONE (06:41)
[2018-04-02 07:13] LABS: Albumin Level 3.1 gm/dl (3.4-5.0); BUN Creatinine Ratio 18.1 (10-20); Calcium 8.2 mg/dl (8.5-10.1); Est GFR (African American) 108.9; Phosphorus 2.6 mg/dl (2.5-4.9); Potassium 3.1 mmol/L (3.5-5.1)
[2018-04-02] MEDS: CHECK SCOPOLAMINE PATCH PLACEMENT SCH ×3 (08:43→15:40)
[2018-04-02] MEDS: BuPROPion SR 100 MG TABCR PO SCH (08:44)
[2018-04-02] MEDS: FERROUS GLUCONATE 324 MG TAB PO SCH ×2 (08:44→17:29)
[2018-04-02] MEDS: ASPIRIN 81 MG ECTAB PO SCH ×2 (08:44→21:23)
[2018-04-02] MEDS: PANTOprazole 40 MG TAB PO SCH (08:44)
[2018-04-02] MEDS: CALCIUM 600MG + VIT D 400 IU TAB PO SCH (08:44)
[2018-04-02] MEDS: DULOXETINE HCL 20 MG CAP PO SCH (08:44)
[2018-04-02] MEDS: lamoTRIgine 25 MG TAB PO SCH (08:44)
[2018-04-02] MEDS: DOCUSATE SODIUM 100 MG CAP PO SCH ×2 (08:44→21:24)
[2018-04-02] MEDS: MULTIVITAMIN TAB PO SCH (08:44)
[2018-04-02] MEDS: VITAMIN B COMPLEX TAB PO SCH (08:44)
[2018-04-02] MEDS: TAPENTADOL HCL ER 50 MG TABCR PO SCH ×2 (08:46→21:38)
[2018-04-02] MEDS: OXYCODONE HCL IR 5 MG TAB (IMMEDIATE RELEASE) PO PRN ×2 (14:41→21:40)
[2018-04-02] MEDS ORDERED: POTASSIUM CHLORIDE 10 MEQ TABCR PO ONE ×2 (20:45→23:03)
[2018-04-02] MEDS: SENNA 8.6 MG TAB PO SCH (21:23)
[2018-04-03] MEDS: KETOROLAC TROMETHAMINE 15 MG/ML VIAL IV SCH ×2 (00:51→06:35)
[2018-04-03] MEDS: CHECK SCOPOLAMINE PATCH PLACEMENT SCH ×2 (00:54→07:32)
[2018-04-03 06:04] LABS: BUN Creatinine Ratio 21.4 (10-20); Calcium 8.5 mg/dl (8.5-10.1); Creatinine Clr Calc Pharmacy 74.8 ml/min; Est GFR (African American) 105.6; Est GFR (Non-African American) 91.2; Potassium 3.7 mmol/L (3.5-5.1)
[2018-04-03] MEDS: ACETAMINOPHEN 500 MG TAB PO SCH (06:35)
[2018-04-03] MEDS: CALCIUM 600MG + VIT D 400 IU TAB PO SCH (07:24)
[2018-04-03] MEDS: FERROUS GLUCONATE 324 MG TAB PO SCH (07:24)
[2018-04-03] MEDS: BuPROPion SR 100 MG TABCR PO SCH (07:24)
[2018-04-03] MEDS: VITAMIN B COMPLEX TAB PO SCH (07:25)
[2018-04-03] MEDS: ASPIRIN 81 MG ECTAB PO SCH (07:25)
[2018-04-03] MEDS: DOCUSATE SODIUM 100 MG CAP PO SCH (07:25)
[2018-04-03] MEDS: PANTOprazole 40 MG TAB PO SCH (07:26)
[2018-04-03] MEDS: MULTIVITAMIN TAB PO SCH (07:26)
[2018-04-03] MEDS: DULOXETINE HCL 20 MG CAP PO SCH (07:26)
[2018-04-03] MEDS: lamoTRIgine 25 MG TAB PO SCH (07:26)
[2018-04-03] MEDS: OXYCODONE HCL IR 5 MG TAB (IMMEDIATE RELEASE) PO PRN (07:27)
--- NOTE | 2018-04-03 08:47 | Progress Note ---
DATE: 04/03/2018 SUBJECTIVE: A 67-year-old white female postop day 2 from a right total hip replacement. She is doing pretty well. Pain is bit better today. No chest pain or shortness of breath. Not feeling dizzy or lightheaded. Wants to get out of the hospital and get home. OBJECTIVE: VITAL SIGNS: Temperature is 36.9. Vital signs stable. PHYSICAL EXAMINATION: GENERAL: Physical examination reveals a healthy, pleasant middle-aged female. She is sitting in her bedside chair, looks pretty comfortable. EXTREMITIES: Examination of the right hip reveals incision to be clean, dry and intact. Leg lengths were equal. Hip is located. She is neurologically intact. ASSESSMENT: A 67-year-old white female postoperative day 2 from right hip replacement, doing pretty well. Pain is improved. PLAN: 1. DVT prophylaxis including thigh-high TEDs, SCDs, and aspirin twice a day. 2. PT/OT. Weight bear as tolerated. Right total hip protocol. 3. Pain control, doing okay with current pain regimen. 4. Potassium - improved after supplementation 5. Disposition: Plan to discharge home with some home health if she does okay in therapy today. CRYS
[2018-04-03] MEDS: TAPENTADOL HCL ER 50 MG TABCR PO SCH (09:24)
--- NOTE | 2018-04-08 09:32 | Discharge Summary ---
ADMITTING PHYSICIAN AND SURGEON: Dr. Yaya Zarate. ADMITTING DIAGNOSIS: Right hip degenerative joint disease. SURGERY PERFORMED: Right total hip arthroplasty. SECONDARY DIAGNOSES: Asthma, anxiety, depression, back pain. CONSULTS: None obtained. HISTORY AND PHYSICAL EXAMINATION: Well documented in patient's chart. HOSPITAL COURSE: The patient was admitted on 04/01/2018. On total hip arthroplasty, tolerated the procedure well without complications. She was transferred to the PACU postoperatively and later to the orthopedic floor for further care. She was given Ancef for antibiotic prophylaxis, ELBA stockings, SCDs and aspirin for DVT prophylaxis. Hemoglobin, hematocrit and vital signs monitored during her hospital stay and remained stable. She did not require blood transfusion. There were no complications. By postoperative day 2, she was tolerating a regular diet, pain was controlled with oral pain medicine. She was participating in physical therapy. Postop day 2, she was discharged home. She was given printed discharge instructions including new prescriptions for extra strength Tylenol, aspirin, iron supplement, oxycodone. Continue her home medications with the exception of Percocet, which she was told to stop. Continue physical therapy. She is weightbearing as tolerated, ELBA stockings. Followup in approximately 2 weeks postoperatively or sooner if there are any problems or concerns.
== END 2018-04-03 11:42 | disposition home or self-care (01) | DRG 470 ==
LOC: ASU 05:01 → 3E 08:42

== ENCOUNTER 2023-09-01 21:49 | Inpatient (IN) ==
[2023-09-01] MEDS ORDERED: MoRPHine SULFATE 4 MG/ML 1 ML CARP\\VIAL IV PRN (22:13)
--- NOTE | 2023-09-01 22:15 | Emergency Department Note ---
Impression & Plan Dislocation, hip, Acute hip pain ED Provider Note NAME: OLIVER LYNN AGE: 72 SEX: F : 1950 ARRIVES VIA: Ambulance INFORMANT: Patient ED PROVIDER(S): Swapnil Garcia DO CHIEF COMPLAINT: Left hip pain HPI: Patient is a 72-year-old female who has a past medical history of restless leg syndrome, migraine with and anxiety who presents the ER for left hip pain. She notes she was bending over to get under bed and felt her hip pop out. She denies any tingling or numbness. No weakness but notes she is unable to walk on it. No trauma. No other exacerbating or remitting factors. ADDITIONAL HISTORY OBTAINED: Per HPI Chronic Medical/Social Conditions Affecting Care: Per HPI PAST MEDICAL HISTORY:See Below PAST SURGICAL HISTORY:See Below FAMILY HISTORY:See Below SOCIAL HISTORY:See Below HOME MEDICATIONS:See Below ALLERGIES:See Below VITALS:See Below PHYSICAL EXAMINATION: GENERAL: Lying in bed moderate distress left hip flexed EYE EXAM: normal conjunctiva. PERRL and EOM's grossly intact. OROPHARYNX: no exudate, no erythema, lips, buccal mucosa, and tongue normal and mucous membranes are moist NECK: supple, no nuchal rigidity, no adenopathy, non-tender LUNGS: Clear to auscultation. Normal chest wall mechanics HEART: no murmurs, S1 normal and S2 normal ABDOMEN: abdomen soft, non-tender, normo-active bowel sounds, no masses, no rebound or guarding. UPPER EXTREMITIES: upper extremities are grossly normal. LOWER EXTREMITIES: No tenderness on palpation of left leg with the exception of the left hip. DP PT 2 out of 4. Gross station intact. NEURO EXAM: Normal sensorium, cranial nerves II-XII grossly intact, normal speech, no gross weakness of arms. MEDICAL DECISION MAKING: Patient is a 72-year-old female who presents for left hip pain. Patient notes that she bent over and she felt her hip pop out. This felt like her previous dislocation. She denies all other complaints. IVs were established blood work was obtained. Labs show no significant leukocytosis or anemia. BMP was unremarkable. Patient ate around 7:30 PM tonight. With this she would need 8 hours clearance. Due to the ER volume consulted Dr. Hennessy Wednesday in combination with anesthesiology. Currently at this time after discussion with [facility] it would be able to do this patient around 6 AM in the morning. Dr. Vidal was agreeable as well. This is pending there is no emergent case that bumps it. Patient was updated in regards to this. She is given multiple doses of morphine. She remains comfortable. Patient will be taken to the OR around 6 AM. She will remain n.p.o. Consults/Care Managements Discussions: Per [facility] Triage Nursing notes reviewed. Limited review of prior medical records performed Vital Signs: reviewed and remarkable for no significant abnormalities Differential diagnosis: Fracture, subluxation, dislocation, contusion, ligamentous injury, neurovascular, compartment syndrome, rhabdomyolysis, as well as other pathologies. ER treatment provided: See below Diagnostics interpreted by me include EKG and cardiac monitoring as listed below: -Cardiac Monitoring: An order was placed for continuous cardiac monitoring. The monitor shows a rate of 80 with sinus rhythm. -ECG: none -Laboratory studies:Interpreted by me as stated above in MDM and shown below. Imaging studies: Xrays: As interpreted by me: X-rays of the pelvis showed dislocated left hip CTs show: none Procedures:none Critical Care: None Past Med/Surg History Medical History Chronic rhinitis Moderate persistent asthma History of COVID-19 09/06/21, no hospitalization, cough/congestion/headache/fatigue Elevated LDL cholesterol level Hypertension Mitral regurgitation Trochanteric bursitis, right hip Depression Valvular disease MILD TR/MR, f/u dr. modi Syncope ? SYNCOPAL EPISODE PRIOR TO 12/2017 FALL; PATIENT UNABLE TO RECALL EVENTS LEADING UP TO FALL FROM STAIRS PER [facility] DISCHARGE SUMMARY. KEPT PATIENT OVERNIGHT TO MONITOR PATIENT ON MONITOR FOR ARRHYTHMIAS (NO MENTION OF ABNORMALITIES NOTED PER [facility] DISCHARGE SUMMARY). INTERMITTENT EPISODES OF SYNCOPE NOTED PER CHART REVIEW (PER CARDIO EVALUATION IN 2013, FELT TO BE VASOVAGAL ETIOLOGY; ECHO WAS ORDERED AND NOTED TO HAVE NO SIGNIFICANT ABNORMALITIES IN 2013). NO ISSUES SINCE ADMISSION PER PATIENT AT PAT VISIT Hx of endometriosis GERD (gastroesophageal reflux disease) CONTROLLED Osteoarthritis Anxiety Migraines ON LAMICTAL; DENIES SEIZURE HISTORY Asthma STABLE Surgical History Hx of colonoscopy Hx of total hip arthroplasty rt./lt. History of laparotomy removal of rt ovary History of hysterectomy lt. tube and ovary Hx of laparoscopy for endometriosis History of open reduction and internal fixation (ORIF) procedure RIGHT OLECRANON ORIF= 01/24/18= GRADE 1 VIEW, MAC#3, ETT 7.0 AT [facility]* History of tonsillectomy History of total shoulder replacement RIGHT Family History Father Family hx of colon cancer Colon cancer Aunt Breast cancer Grandfather (Maternal) Myocardial infarction Mother Myocardial infarction Other Family history non-contributory Denies family history of Ovarian cancer Prostate cancer Social History Smoking Status: Never smoker Second Hand Exposure: No; Do You Dip or Chew Tobacco: No; Hx Alcohol Use: Yes Alcohol type: beer, wine and hard liquor Hx Substance Use: No Preferred Language: Italian Communication Ability: Effective Visual Impairment: No Limitations Hearing Ability: Normal Supervisor Claims Required: No Beliefs That Will Affect Care: None marital status: Current Living Situation: Alone Current Living Situation Comment: CURRENTLY HAS SOMEONE LIVING WITH HER NOW current occupational status: employed Feels Safe at Home: Yes Childhood Exposure to Second-Hand Smoke: Yes Dental Care, Regularly: Yes Physical Activity Frequency: Daily Seatbelt Use: always Sunscreen Use: Yes Assistive Devices: Cane, Walker and Wheelchair Allergies Allergies Allergy/AdvReac Type Severity Reaction Status Date / Time cat dander Allergy Mild Verified 09/02/23 06:06 Sulfa (Sulfonamide Allergy Mild UNKNOWN Verified 09/02/23 06:06 Antibiotics) oxycodone [From Percocet] Allergy itchy Verified 09/02/23 06:06 sulfabenzamide Allergy Unknown Verified 09/02/23 06:06 Home Meds Home Medications Medication Instructions Recorded Confirmed duloxetine 40 mg capsule,delayed 40 mg PO QAM 01/21/18 08/18/23 release sumatriptan succinate 4 mg/0.5 mL 4 mg subcut QDD PRN MIGRAINES 01/21/18 08/18/23 subcutaneous cartridge (refill) (Imitrex STATdose Refill) omeprazole 20 mg capsule,delayed 20 mg PO QAM PRN Acid Reflux #30 01/03/20 08/18/23 release caps zaleplon 10 mg capsule 10 mg PO HS PRN sleep 09/09/20 08/18/23 cyclosporine 0.05 % eye drops in a 1 drp ophthalmic (eye) Q12H 02/15/23 08/18/23 dropperette (Restasis) kbfhgkb-jytcqlbdtkcee-wcaafjrb 250 2 tab PO Q6H PRN 03/25/23 08/18/23 mg-250 mg-65 mg tablet (Excedrin Migraine) bupropion HCl 100 mg tablet,12 hr 150 mg PO QAM 08/18/23 08/18/23 sustained-release (Wellbutrin SR) Previous Rx's Medication Instructions Recorded fluticasone propionate 110 2 puff inhalation BID #12 grams 09/02/22 mcg/actuation HFA aerosol inhaler (Flovent HFA) inhalational spacing device #1 ea 09/02/22 azelastine 137 mcg (0.1 %) nasal 2 spray intranasal BID PRN nasal 09/28/22 spray aerosol congestion #90 mL sumatriptan succinate 100 mg 100 mg PO ONCE PRN MIGRAINES #27 12/31/22 tablet (Imitrex) tabs lamotrigine 25 mg tablet (Lamictal) 25 mg PO BID #60 tabs 03/25/23 rimegepant 75 mg disintegrating 75 mg PO ONCE PRN migraine 03/25/23 tablet (Nurtec ODT) headache #8 tabs valacyclovir 1 gram tablet 1,000 mg PO Q12H #30 tabs 03/31/23 (Valtrex) cholecalciferol (vitamin D3) 50 50 mcg PO DAILY #30 caps 07/05/23 mcg (2,000 unit) capsule cyanocobalamin (vitamin B-12) 1,000 mcg sublingual DAILY #30 tabs 07/05/23 1,000 mcg sublingual tablet losartan 100 1 tab PO QAM #90 tabs 07/05/23 mg-hydrochlorothiazide 25 mg tablet (Hyzaar) albuterol sulfate 90 mcg/actuation 1 puff inhalation Q6H PRN Wheezing 08/09/23 aerosol inhaler #18 grams metoprolol succinate 25 mg 25 mg PO DAILY #90 tabs 08/18/23 tablet,extended release 24 hr tramadol 50 mg tablet 50 - 100 mg (1 - 2 x 50 mg) PO Q4H 09/02/23 PRN pain #15 tabs Results & Data (ED) Vital Signs Vital Signs - 24 hr 09/01/23 21:58 09/01/23 21:58 09/01/23 22:05 Temperature Temperature Source Pulse Rate 74 77 Pulse Rate [Apical] 74 Pulse Rate [Left Finger] Pulse Rate from SpO2 Sensor Pulse Rhythm Pulse Rhythm [Apical] Pulse Strength [Apical] Respiratory Rate 19 19 Respiratory Effort / Characteristics Respiratory Depth Respiratory Pattern Blood Pressure 132/81 Blood Pressure [Left Arm] Blood Pressure [Right Arm] 132/81 Blood Pressure Mean 98 Blood Pressure Mean [Left Arm] Blood Pressure Mean [Right Arm] 98 Blood Pressure Position [Left Arm] Pulse Oximetry 98 98 Oxygen Delivery Method Room Air Room Air Sepsis Recent Fever Within 48 Hours No Sepsis New/Unexplained Change in Mental Status No Sepsis Action Taken by Nursing No Action Required 09/01/23 23:00 09/01/23 23:00 09/01/23 23:30 Temperature Temperature Source Pulse Rate 84 79 83 Pulse Rate [Apical] Pulse Rate [Left Finger] Pulse Rate from SpO2 Sensor 83 Pulse Rhythm Regular Pulse Rhythm [Apical] Pulse Strength [Apical] Respiratory Rate 22 16 16 Respiratory Effort / Characteristics Respiratory Depth Respiratory Pattern Blood Pressure 144/87 H 131/85 Blood Pressure [Left Arm] Blood Pressure [Right Arm] Blood Pressure Mean 106 100 Blood Pressure Mean [Left Arm] Blood Pressure Mean [Right Arm] Blood Pressure Position [Left Arm] Pulse Oximetry 99 96 94 Oxygen Delivery Method Room Air Room Air Room Air Sepsis Recent Fever Within 48 Hours Sepsis New/Unexplained Change in Mental Status Sepsis Action Taken by Nursing 09/02/23 00:00 09/02/23 00:30 09/02/23 01:00 Temperature Temperature Source Pulse Rate 78 76 79 Pulse Rate [Apical] Pulse Rate [Left Finger] Pulse Rate from SpO2 Sensor 78 76 79 Pulse Rhythm Pulse Rhythm [Apical] Pulse Strength [Apical] Respiratory Rate 16 17 13 Respiratory Effort / Characteristics Respiratory Depth Respiratory Pattern Blood Pressure 141/83 H 141/82 H 137/80 Blood Pressure [Left Arm] Blood Pressure [Right Arm] Blood Pressure Mean 102 101 99 Blood Pressure Mean [Left Arm] Blood Pressure Mean [Right Arm] Blood Pressure Position [Left Arm] Pulse Oximetry 96 96 96 Oxygen Delivery Method Room Air Room Air Room Air Sepsis Recent Fever Within 48 Hours Sepsis New/Unexplained Change in Mental Status Sepsis Action Taken by Nursing 09/02/23 01:30 09/02/23 01:54 09/02/23 02:00 Temperature Temperature Source Pulse Rate 74 74 74 Pulse Rate [Apical] Pulse Rate [Left Finger] Pulse Rate from SpO2 Sensor 74 Pulse Rhythm Pulse Rhythm [Apical] Pulse Strength [Apical] Respiratory Rate 23 18 Respiratory Effort / Characteristics Respiratory Depth Respiratory Pattern Blood Pressure 129/81 128/79 Blood Pressure [Left Arm] Blood Pressure [Right Arm] Blood Pressure Mean 97 95 Blood Pressure Mean [Left Arm] Blood Pressure Mean [Right Arm] Blood Pressure Position [Left Arm] Pulse Oximetry 92 92 Oxygen Delivery Method Room Air Room Air Sepsis Recent Fever Within 48 Hours Sepsis New/Unexplained Change in Mental Status Sepsis Action Taken by Nursing 09/02/23 02:01 09/02/23 02:29 09/02/23 03:00 Temperature Temperature Source Pulse Rate 73 75 72 Pulse Rate [Apical] Pulse Rate [Left Finger] Pulse Rate from SpO2 Sensor 73 76 72 Pulse Rhythm Pulse Rhythm [Apical] Pulse Strength [Apical] Respiratory Rate 21 16 17 Respiratory Effort / Characteristics Respiratory Depth Respiratory Pattern Blood Pressure 128/79 128/85 136/86 Blood Pressure [Left Arm] Blood Pressure [Right Arm] Blood Pressure Mean 95 99 102 Blood Pressure Mean [Left Arm] Blood Pressure Mean [Right Arm] Blood Pressure Position [Left Arm] Pulse Oximetry 93 92 93 Oxygen Delivery Method Room Air Room Air Room Air Sepsis Recent Fever Within 48 Hours Sepsis New/Unexplained Change in Mental Status Sepsis Action Taken by Nursing 09/02/23 03:30 09/02/23 04:00 09/02/23 04:30 Temperature Temperature Source Pulse Rate 71 71 71 Pulse Rate [Apical] Pulse Rate [Left Finger] Pulse Rate from SpO2 Sensor 71 67 71 Pulse Rhythm Pulse Rhythm [Apical] Pulse Strength [Apical] Respiratory Rate 15 15 14 Respiratory Effort / Characteristics Respiratory Depth Respiratory Pattern Blood Pressure 136/87 136/85 129/89 Blood Pressure [Left Arm] Blood Pressure [Right Arm] Blood Pressure Mean 103 102 102 Blood Pressure Mean [Left Arm] Blood Pressure Mean [Right Arm] Blood Pressure Position [Left Arm] Pulse Oximetry 95 93 93 Oxygen Delivery Method Room Air Room Air Room Air Sepsis Recent Fever Within 48 Hours Sepsis New/Unexplained Change in Mental Status Sepsis Action Taken by Nursing 09/02/23 05:01 09/02/23 05:30 09/02/23 06:45 Temperature 36 C L Temperature Source Oral Pulse Rate 72 72 Pulse Rate [Apical] 72 Pulse Rate [Left Finger] Pulse Rate from SpO2 Sensor 75 72 Pulse Rhythm Pulse Rhythm [Apical] Regular Pulse Strength [Apical] Normal Respiratory Rate 20 19 12 Respiratory Effort / Characteristics Non-Labored Respiratory Depth Normal Respiratory Pattern Regular Blood Pressure 138/87 147/95 H Blood Pressure [Left Arm] 147/105 H Blood Pressure [Right Arm] Blood Pressure Mean 104 112 Blood Pressure Mean [Left Arm] 119 Blood Pressure Mean [Right Arm] Blood Pressure Position [Left Arm] Lying Pulse Oximetry 97 98 99 Oxygen Delivery Method Room Air Room Air Room Air Sepsis Recent Fever Within 48 Hours Sepsis New/Unexplained Change in Mental Status Sepsis Action Taken by Nursing 09/02/23 06:55 09/02/23 07:07 09/02/23 07:15 Temperature 36.3 C L 36.4 C L 36.5 C Temperature Source Oral Oral Oral Pulse Rate Pulse Rate [Apical] 75 70 71 Pulse Rate [Left Finger] Pulse Rate from SpO2 Sensor Pulse Rhythm Pulse Rhythm [Apical] Regular Regular Pulse Strength [Apical] Normal Respiratory Rate 10 L 12 12 Respiratory Effort / Characteristics Non-Labored Non-Labored Spontaneous Respiratory Depth Normal Normal Normal Respiratory Pattern Regular Regular Blood Pressure Blood Pressure [Left Arm] 134/85 143/73 H 131/80 Blood Pressure [Right Arm] Blood Pressure Mean Blood Pressure Mean [Left Arm] 101 96 97 Blood Pressure Mean [Right Arm] Blood Pressure Position [Left Arm] Lying Lying Pulse Oximetry 99 98 94 Oxygen Delivery Method Room Air Room Air Room Air Sepsis Recent Fever Within 48 Hours Sepsis New/Unexplained Change in Mental Status Sepsis Action Taken by Nursing 09/02/23 07:30 09/02/23 07:45 09/02/23 07:58 Temperature 36.5 C 36.5 C Temperature Source Oral Oral Pulse Rate Pulse Rate [Apical] 69 75 Pulse Rate [Left Finger] 75 Pulse Rate from SpO2 Sensor Pulse Rhythm Pulse Rhythm [Apical] Pulse Strength [Apical] Respiratory Rate 14 14 16 Respiratory Effort / Characteristics Non-Labored Spontaneous Respiratory Depth Normal Normal Respiratory Pattern Regular Blood Pressure Blood Pressure [Left Arm] 129/77 113/71 123/74 Blood Pressure [Right Arm] Blood Pressure Mean Blood Pressure Mean [Left Arm] 94 85 90 Blood Pressure Mean [Right Arm] Blood Pressure Position [Left Arm] Pulse Oximetry 94 93 94 Oxygen Delivery Method Room Air Room Air Room Air Sepsis Recent Fever Within 48 Hours Sepsis New/Unexplained Change in Mental Status Sepsis Action Taken by Nursing Laboratory Data 09/01/23 22:22 09/01/23 22:22 Lab Results 09/01/23 Range/Units 22:22 WBC 10.63 (4.8-10.8) K/ul RBC 4.72 (4.20-5.40) M/uL Hgb 14.2 (12.0-16.0) g/dl Hct 41.4 (37.0-47.0) % MCV 87.7 (80.0-100.0) fL MCH 30.1 (25.0-34.0) pg MCHC 34.3 (32.0-36.0) g/dL RDW Std Deviation 41.7 (36.4-46.3) fL RDW Coeff of Ino 13.1 (11.5-14.5) % Plt Count 316 (130-400) K/uL MPV 9.6 (9.4-12.4) fL Immature Gran % (Auto) 0.5 % Neut % (Auto) 73.2 % Lymph % (Auto) 17.3 % [place] % (Auto) 6.4 % Eos % (Auto) 1.8 % Baso % (Auto) 0.8 % Neut # (Auto) 7.79 H (1.40-6.50) K/uL Lymph # (Auto) 1.84 (1.20-3.40) K/uL [place] # (Auto) 0.68 H (0.11-0.59) K/uL Eos # (Auto) 0.19 (0.00-0.50) K/uL Baso # (Auto) 0.08 (0.00-0.20) K/uL Immature Gran # (Auto) 0.05 (0.01-0.20) K/uL Sodium 138 (136-145) mmol/L Potassium 4.1 (3.5-5.1) mmol/L Chloride 101 (98-107) mmol/L Carbon Dioxide 29 (21-32) mmol/L Anion Gap 8 (3-11) BUN 24 H (6-23) mg/dl Creatinine 1.08 (0.6-1.2) mg/dl Est Cr Clr Drug Dosing 40.1 ml/min Est GFR ( Amer) 59.8 ml/min Est GFR (Non-Af Amer) 51.6 ml/min BUN/Creatinine Ratio 22.2 H (10-20) Glucose 115 H (70-99(Fasting)) mg/dl Calcium 9.8 (8.6-10.3) mg/dl Administered Medications Docusate Sodium (Docusate Sodium 100 Mg Cap) 100 mg PO BID ANDREW Stop: 10/02/23 08:59 Last Admin: 09/02/23 11:50 Dose: 100 mg Documented By: SURI Sodium Chloride (Nss) 1,000 mls @ 100 mls/hr IV .Q10H ANDREW Stop: 09/03/23 06:00 Last Admin: 09/02/23 10:14 Dose: Not Given Documented By: SURI Morphine Sulfate (Morphine Sulfate 2 Mg/Ml Carp) 2 mg IV Q1H PRN PRN Reason: Moderate Pain (Rating 3,4,5,6) Stop: 09/15/23 22:12 Last Admin: 09/02/23 05:43 Dose: 2 mg Documented By: Admin: 09/02/23 03:30 Dose: 2 mg Documented By: Admin: 09/02/23 00:52 Dose: 2 mg Documented By: Admin: 09/01/23 22:27 Dose: 2 mg Documented By: ROSEANN Tramadol HCl (Tramadol Hcl 50 Mg Tablet) 50 - 100 mg PO Q4H PRN PRN Reason: Pain & Pre PT Stop: 10/02/23 07:56 Last Admin: 09/02/23 11:51 Dose: 100 mg Documented By: SURI Discontinued Medications Fentanyl Citrate (Fentanyl Citrate Pf 100 Mcg/2 Ml Vial) Confirm Administered Dose 100 mcg .ROUTE .STK-MED ONE Stop: 09/01/23 23:11 Last Increment: 09/01/23 23:12 Dose: 50 mcg Documented By: ROBERT Ondansetron HCl (Ondansetron Inj 2 Mg/Ml 2 Ml Vial) 4 mg IV NOW STA Stop: 09/01/23 22:14 Last Admin: 09/01/23 22:27 Dose: 4 mg Documented By: ROSEANN Imaging Data Radiologist's Impression: Pelvis X-Ray 09/01/23 22:15 XR pelvis 1-2V routine CLINICAL HISTORY: Left hip pain. COMPARISON: Pelvis radiograph April 01, 2018. FINDINGS: There is superior dislocation of the femoral component of the left hip arthroplasty with respect to the acetabular cup. No fractures are identified. Visualized portions of the right hip arthroplasty are intact. Sacroiliac joints and symphysis pubis are intact. IMPRESSION: Dislocated femoral component of the left hip arthroplasty. No fractures. ACT 112: Negative or not required by law. Electronically signed by: Gerson Bower M.D. 09/02/2023 7:41 AM Hip X-Ray 09/02/23 05:28 XR hip LT min 2V CLINICAL HISTORY: Left hip pain. COMPARISON: Pelvis radiograph September 01, 2023 at 11:15 PM. FINDINGS: There is persistent superior dislocation of the femoral component of the left hip arthroplasty with respect to the acetabular cup. There are no fractures. Right hip arthroplasty is noted on crosstable lateral image. IMPRESSION: Dislocated femoral component of the left hip arthroplasty. No fractures. ACT 112: Negative or not required by law. Electronically signed by: Gerson Bower M.D. 09/02/2023 6:37 AM Hip X-Ray 09/02/23 06:00 INTRAOPERATIVE RADIOGRAPHS CLINICAL HISTORY: Dislocated left hip arthroplasty. Reduction images. Fluoro time: 14 seconds Ka,r: 3.06 mGy FINDINGS: 8 spot fluoroscopic views of the left hip and femur are correlated with radiographs dated 09/02/2023. Images show successful reduction of the dislocated left hip arthroplasty with moravian of near-anatomic alignment. There is no evidence of acute fracture on these fluoroscopic views. IMPRESSION: Intraoperative images from reduction of a dislocated left hip arthroplasty. Electronically signed by: Jeremias Madera M.D. 09/02/2023 8:05 AM Discharge Plan Visit Data Chief Complaint: Hip Pain Stated Complaint: HIP PAIN, FALL ED Provider: Swapnil Garcia Discharge Problem: Dislocation, hip, Acute hip pain Patient Disposition: Still a Patient Discharge Instructions Interventions: ED Discharge Assessment Last Done: 09/02/23 05:58 Discharge Problem: Dislocation, hip Qualifiers: Encounter type: initial encounter Laterality: left Qualified Code(s): S73.005A - Unspecified dislocation of left hip, initial encounter Acute hip pain Qualifiers: Laterality: left Qualified Code(s): M25.552 - Pain in left hip
[2023-09-01] MEDS: MoRPHine SULFATE 2 MG/ML CARP IV PRN (22:27)
[2023-09-01] MEDS: ONDANSETRON INJ 2 MG/ML 2 ML VIAL IV STA (22:27)
[2023-09-01 22:35] LABS: Basophils # (auto) 0.08 K/uL (0.00-0.20); Basophils % (auto) 0.8 %; Eosinophils # (auto) 0.19 K/uL (0.00-0.50); Eosinophils % (auto) 1.8 %; Hematocrit (blood only) 41.4 % (37.0-47.0); Hemoglobin 14.2 g/dl (12.0-16.0); Immature Granulocytes # (auto) 0.05 K/uL (0.01-0.20); Immature Granulocytes % (auto) 0.5 %; Lymphocytes # (auto) 1.84 K/uL (1.20-3.40); Lymphocytes % (auto) 17.3 %; Mean Corpuscular Hemoglobin 30.1 pg (25.0-34.0); Mean Corpuscular Hgb Conc 34.3 g/dL (32.0-36.0); Mean Corpuscular Volume 87.7 fL (80.0-100.0); Mean Platelet Volume 9.6 fL (9.4-12.4); Monocytes # (auto) 0.68 K/uL (0.11-0.59); Monocytes % (auto) 6.4 %; Neutrophils # (auto) 7.79 K/uL (1.40-6.50); Neutrophils % (auto) 73.2 %; Platelet Count 316 K/uL (130-400); RDW Coefficient of Variation 13.1 % (11.5-14.5); RDW Standard Deviation 41.7 fL (36.4-46.3); Red Blood Count 4.72 M/uL (4.20-5.40); White Blood Count 10.63 K/ul (4.8-10.8)
[2023-09-01 22:55] LABS: BUN Creatinine Ratio 22.2 (10-20); Calcium 9.8 mg/dl (8.6-10.3); Creatinine Clr Calc Pharmacy 40.1 ml/min; Est GFR (African American) 59.8 ml/min; Est GFR (Non-African American) 51.6 ml/min; Potassium 4.1 mmol/L (3.5-5.1)
[2023-09-01] MEDS: fentaNYL citrate PF 100 MCG/2 ML VIAL ONE (23:12)
--- NOTE | 2023-09-02 05:28 | Anesthesiology Consultation ---
Date of Service September 02, 2023 Assessment & Plan (1) Encounter for pre-operative examination: Chart Review Chart Review: Acceptable Risk for Surgery and Patient NOT seen in Pre Admission Testing Consults Requested none History Surgery Operation Date: 09/02/23 06:00 Proposed Procedures p Closed Reduction Extremity - Pedro Vidal MD Height/Weight Height: 5 ft 8 in Weight: 53.1 kg Allergies Allergy/AdvReac Type Severity Reaction Status Date / Time acetaminophen [From Percocet] Allergy Mild itchy Verified 08/18/23 14:26 cat dander Allergy Mild Verified 08/18/23 14:26 Sulfa (Sulfonamide Allergy Mild UNKNOWN Verified 08/18/23 14:26 Antibiotics) oxycodone [From Percocet] Allergy itchy Verified 08/18/23 14:26 sulfabenzamide Allergy Unknown Verified 08/18/23 14:26 Medications Home Medications Medication Instructions Recorded Confirmed Last Taken duloxetine 40 mg capsule,delayed 40 mg PO QAM 01/21/18 08/18/23 10/10/21 05:45 release sumatriptan succinate 4 mg/0.5 mL 4 mg subcut QDD PRN MIGRAINES 01/21/18 08/18/23 03/17/18 08:30 subcutaneous cartridge (refill) (Imitrex STATdose Refill) omeprazole 20 mg capsule,delayed 20 mg PO QAM PRN Acid Reflux #30 01/03/20 08/18/23 Unknown release caps zaleplon 10 mg capsule 10 mg PO HS PRN sleep 09/09/20 08/18/23 Unknown fluticasone propionate 110 2 puff inhalation BID #12 grams 09/02/22 08/18/23 Unknown mcg/actuation HFA aerosol inhaler (Flovent HFA) inhalational spacing device #1 ea 09/02/22 08/18/23 Unknown azelastine 137 mcg (0.1 %) nasal 2 spray intranasal BID PRN nasal 09/28/22 08/18/23 Unknown spray aerosol congestion #90 mL sumatriptan succinate 100 mg 100 mg PO ONCE PRN MIGRAINES #27 12/31/22 08/18/23 Unknown tablet (Imitrex) tabs cyclosporine 0.05 % eye drops in a 1 drp ophthalmic (eye) Q12H 10/23/23 04/24/24 Unknown dropperette (Restasis) [id number] 250 2 tab PO Q6H PRN 03/25/23 08/18/23 Unknown mg-250 mg-65 mg tablet (Excedrin Migraine) lamotrigine 25 mg tablet (Lamictal) 25 mg PO BID #60 tabs 03/25/23 08/18/23 Unknown rimegepant 75 mg disintegrating 75 mg PO ONCE PRN migraine 03/25/23 08/18/23 Unknown tablet (Nurtec ODT) headache #8 tabs valacyclovir 1 gram tablet 1,000 mg PO Q12H #30 tabs 03/31/23 08/18/23 Unknown (Valtrex) cholecalciferol (vitamin D3) 50 50 mcg PO DAILY #30 caps 07/05/23 08/18/23 Unknown mcg (2,000 unit) capsule cyanocobalamin (vitamin B-12) 1,000 mcg sublingual DAILY #30 tabs 07/05/23 08/18/23 Unknown 1,000 mcg sublingual tablet losartan 100 1 tab PO QAM #90 tabs 07/05/23 08/18/23 Unknown mg-hydrochlorothiazide 25 mg tablet (Hyzaar) albuterol sulfate 90 mcg/actuation 1 puff inhalation Q6H PRN Wheezing 08/09/23 08/18/23 Unknown aerosol inhaler #18 grams bupropion HCl 100 mg tablet,12 hr 150 mg PO QAM 08/18/23 08/18/23 Unknown sustained-release (Wellbutrin SR) metoprolol succinate 25 mg 25 mg PO DAILY #90 tabs 08/18/23 08/18/23 Unknown tablet,extended release 24 hr Active Medications Generic Name Dose Route Start Last Admin Trade Name Freq PRN Reason Stop Dose Admin Morphine Sulfate 2 mg 09/01/23 22:13 09/02/23 05:43 Morphine Sulfate 2 Mg/Ml Carp IV 09/15/23 22:12 2 mg Q1H PRN Administration Moderate Pain (Rating 3,4,5,6) Past Medical History Medical History Chronic rhinitis Moderate persistent asthma History of COVID-19 09/06/21, no hospitalization, cough/congestion/headache/fatigue Elevated LDL cholesterol level Hypertension Mitral regurgitation Trochanteric bursitis, right hip Depression Valvular disease MILD TR/MR, f/u dr. modi Syncope ? SYNCOPAL EPISODE PRIOR TO 12/2017 FALL; PATIENT UNABLE TO RECALL EVENTS LEADING UP TO FALL FROM STAIRS PER [facility] DISCHARGE SUMMARY. KEPT PATIENT OVERNIGHT TO MONITOR PATIENT ON MONITOR FOR ARRHYTHMIAS (NO MENTION OF ABNORMALITIES NOTED PER [facility] DISCHARGE SUMMARY). INTERMITTENT EPISODES OF SYNCOPE NOTED PER CHART REVIEW (PER CARDIO EVALUATION IN 2013, FELT TO BE VASOVAGAL ETIOLOGY; ECHO WAS ORDERED AND NOTED TO HAVE NO SIGNIFICANT ABNORMALITIES IN 2013). NO ISSUES SINCE ADMISSION PER PATIENT AT PAT VISIT Hx of endometriosis GERD (gastroesophageal reflux disease) CONTROLLED Osteoarthritis Anxiety Migraines ON LAMICTAL; DENIES SEIZURE HISTORY Asthma STABLE Exercise / Class Metabolic Activity II 4-5 Yardwork/Stairs/Walk up hill Past Family History Family History Father Family hx of colon cancer Colon cancer Aunt Breast cancer Grandfather (Maternal) Myocardial infarction Mother Myocardial infarction Other Family history non-contributory Denies family history of Ovarian cancer Prostate cancer Past Surgical History Surgical History Hx of colonoscopy Hx of total hip arthroplasty rt./lt. History of laparotomy removal of rt ovary History of hysterectomy lt. tube and ovary Hx of laparoscopy for endometriosis History of open reduction and internal fixation (ORIF) procedure RIGHT OLECRANON ORIF= 01/24/18= GRADE 1 VIEW, MAC#3, ETT 7.0 AT [facility]* History of tonsillectomy History of total shoulder replacement RIGHT Past Anesthesia History No Hx of Anesthesia Complications and No Family Hx of Anesthesia Complications History of PONV No Hx of PONV and No Hx of Motion Sickness Social History Smoking Status: Never smoker Do You Dip or Chew Tobacco: No Hx Alcohol Use: Yes Alcohol type: beer, wine and hard liquor alcohol intake frequency: holidays/special occasions only Hx Substance Use: No substance use type: prescription drug Physical Exam Vital Signs Last Vital Signs Pulse 72 09/02/23 05:01 Resp 20 09/02/23 05:01 BP 138/87 09/02/23 05:01 Pulse Ox 97 09/02/23 05:01 O2 Del Method Room Air 09/02/23 05:01 Testing Laboratory Results 09/01/23 22:22 09/01/23 22:22
--- NOTE | 2023-09-02 05:44 | History & Physical Report ---
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 I recommend close reduction under anesthesia. There are also some staffing and volume issues in the emergency room which which prevent this from being done by the ER personnel in the ER. I talked to her about risks benefits rehab recovery and she agreed to proceed. An informed consent was obtained. She will be taken over to the OR this morning for close reduction. Subsequently I will get her some PT and probably a hip abduction brace and she can follow-up either with myself or Dr. Zarate.Slight numbness on the foot is probably a positional nature and hopefully will improve once the reduction occurs. History of Present Illness Primary Care Provider: Sebastian Gonzalez MD Laura is 72 years old. She bent over to get something out of from underneath her bed last evening about 7 PM and her left hip popped out. This total hip [place] [address] Marilynn palma. She had a right hip done in [address] Zarate. She had previous dislocation of her left hip in approximately 2014. She complains of left hip pain and inability to move and ambulate. She has also developed some slight numbness on the top of her left foot. Due to her n.p.o. status anesthesia would not be possible until 4 AM. Allergies Allergy/AdvReac Type Severity Reaction Status Date / Time acetaminophen [From Percocet] Allergy Mild itchy Verified 08/18/23 14:26 cat dander Allergy Mild Verified 08/18/23 14:26 Sulfa (Sulfonamide Allergy Mild UNKNOWN Verified 08/18/23 14:26 Antibiotics) oxycodone [From Percocet] Allergy itchy Verified 08/18/23 14:26 sulfabenzamide Allergy Unknown Verified 08/18/23 14:26 Home Medications Medication Instructions Recorded Confirmed Type duloxetine 40 mg capsule,delayed 40 mg PO QAM 01/21/18 08/18/23 History release sumatriptan succinate 4 mg/0.5 mL 4 mg subcut QDD PRN MIGRAINES 01/21/18 08/18/23 History subcutaneous cartridge (refill) (Imitrex STATdose Refill) omeprazole 20 mg capsule,delayed 20 mg PO QAM PRN Acid Reflux #30 01/03/20 08/18/23 History release caps zaleplon 10 mg capsule 10 mg PO HS PRN sleep 09/09/20 08/18/23 History fluticasone propionate 110 2 puff inhalation BID #12 grams 09/02/22 08/18/23 Rx mcg/actuation HFA aerosol inhaler (Flovent HFA) inhalational spacing device #1 ea 09/02/22 08/18/23 Rx azelastine 137 mcg (0.1 %) nasal 2 spray intranasal BID PRN nasal 09/28/22 08/18/23 Rx spray aerosol congestion #90 mL sumatriptan succinate 100 mg 100 mg PO ONCE PRN MIGRAINES #27 12/31/22 08/18/23 Rx tablet (Imitrex) tabs cyclosporine 0.05 % eye drops in a 1 drp ophthalmic (eye) Q12H 02/15/23 08/18/23 History dropperette (Restasis) [id number]-[id number] 250 2 tab PO Q6H PRN 03/25/23 08/18/23 History mg-250 mg-65 mg tablet (Excedrin Migraine) lamotrigine 25 mg tablet (Lamictal) 25 mg PO BID #60 tabs 03/25/23 08/18/23 Rx rimegepant 75 mg disintegrating 75 mg PO ONCE PRN migraine 03/25/23 08/18/23 Rx tablet (Nurtec ODT) headache #8 tabs valacyclovir 1 gram tablet 1,000 mg PO Q12H #30 tabs 03/31/23 08/18/23 Rx (Valtrex) cholecalciferol (vitamin D3) 50 50 mcg PO DAILY #30 caps 07/05/23 08/18/23 Rx mcg (2,000 unit) capsule cyanocobalamin (vitamin B-12) 1,000 mcg sublingual DAILY #30 tabs 07/05/23 08/18/23 Rx 1,000 mcg sublingual tablet losartan 100 1 tab PO QAM #90 tabs 07/05/23 08/18/23 Rx mg-hydrochlorothiazide 25 mg tablet (Hyzaar) albuterol sulfate 90 mcg/actuation 1 puff inhalation Q6H PRN Wheezing 08/09/23 08/18/23 Rx aerosol inhaler #18 grams bupropion HCl 100 mg tablet,12 hr 150 mg PO QAM 08/18/23 08/18/23 History sustained-release (Wellbutrin SR) metoprolol succinate 25 mg 25 mg PO DAILY #90 tabs 08/18/23 08/18/23 Rx tablet,extended release 24 hr Past Med/Surg History Medical History Chronic rhinitis Moderate persistent asthma History of COVID-19 09/06/21, no hospitalization, cough/congestion/headache/fatigue Elevated LDL cholesterol level Hypertension Mitral regurgitation Trochanteric bursitis, right hip Depression Valvular disease MILD TR/MR, f/u dr. modi Syncope ? SYNCOPAL EPISODE PRIOR TO 12/2017 FALL; PATIENT UNABLE TO RECALL EVENTS LE ADING UP TO FALL FROM STAIRS PER [facility] DISCHARGE SUMMARY. KEPT PATIENT OVERNIGHT TO MONITOR PATIENT ON MONITOR FOR ARRHYTHMIAS (NO MENTION OF ABNORMALITIES NOTED PER [facility] DISCHARGE SUMMARY). INTERMITTENT EPISODES OF SYNCOPE NOTED PER CHART REVIEW (PER CARDIO EVALUATION IN 2013, FELT TO BE VASOVAGAL ETIOLOGY; ECHO WAS ORDERED AND NOTED TO HAVE NO SIGNIFICANT ABNORMALITIES IN 2013). NO ISSUES SINCE ADMISSION PER PATIENT AT PAT VISIT Hx of endometriosis GERD (gastroesophageal reflux disease) CONTROLLED Osteoarthritis Anxiety Migraines ON LAMICTAL; DENIES SEIZURE HISTORY Asthma STABLE Surgical History Hx of colonoscopy Hx of total hip arthroplasty rt./lt. History of laparotomy removal of rt ovary History of hysterectomy lt. tube and ovary Hx of laparoscopy for endometriosis History of open reduction and internal fixation (ORIF) procedure RIGHT OLECRANON ORIF= 01/24/18= GRADE 1 VIEW, MAC#3, ETT 7.0 AT [facility]* History of tonsillectomy History of total shoulder replacement RIGHT Family History Father Family hx of colon cancer Colon cancer Aunt Breast cancer Grandfather (Maternal) Myocardial infarction Mother Myocardial infarction Other Family history non-contributory Denies family history of Ovarian cancer Prostate cancer Social History Smoking Status: Never smoker Second Hand Exposure: No; Do You Dip or Chew Tobacco: No; Hx Alcohol Use: Yes Alcohol type: beer, wine and hard liquor Hx Substance Use: No Preferred Language: Sinhala Communication Ability: Effective Visual Impairment: No Limitations Hearing Ability: Normal Lathe Operator Required: No Beliefs That Will Affect Care: None marital status: Current Living Situation: Alone Current Living Situation Comment: CURRENTLY HAS SOMEONE LIVING WITH HER NOW current occupational status: employed Feels Safe at Home: Yes Childhood Exposure to Second-Hand Smoke: Yes Dental Care, Regularly: Yes Physical Activity Frequency: Daily Seatbelt Use: always Sunscreen Use: Yes Assistive Devices: Glasses and Hearing Aid - Bilateral Physical Exam Physical Exam: Her DP and PT pulses are trace. There is slight numbness on the top of the foot but not the second webspace. Normal sensation in the leg medial and lateral and plantar foot. She has 5 out of 5 ankle and toe plantarflexion dorsiflexion inversion and eversion movement. There is tenderness about the left hip which is held in a flexed and internally rotated position. The left hip cannot be moved. Results & Data Results & Data Vital Signs (Past 12 Hours) Vital Signs Pulse Pulse Resp BP BP Pulse Ox O2 Del Method 09/02/23 05:01 72 20 138/87 97 Room Air 09/02/23 04:30 71 14 129/89 93 Room Air 09/02/23 04:00 71 15 136/85 93 Room Air 09/02/23 03:30 71 15 136/87 95 Room Air 09/02/23 03:00 72 17 136/86 93 Room Air 09/02/23 02:29 75 16 128/85 92 Room Air 09/02/23 02:01 73 21 128/79 93 Room Air 09/02/23 02:00 74 18 128/79 92 Room Air 09/02/23 01:54 74 09/02/23 01:30 74 23 129/81 92 Room Air 09/02/23 01:00 79 13 137/80 96 Room Air 09/02/23 00:30 76 17 141/82 H 96 Room Air 09/02/23 00:00 78 16 141/83 H 96 Room Air 09/01/23 23:30 83 16 131/85 94 Room Air 09/01/23 23:00 79 16 144/87 H 96 Room Air 09/01/23 23:00 84 22 99 Room Air 09/01/23 22:05 77 09/01/23 21:58 74 19 132/81 98 Room Air 09/01/23 21:58 74 19 132/81 98 Room Air Diagnostic Findings Her labs are noted. CBC and PRP. X-ray of the pelvis shows a superior dislocation of the left hip. There is a right total hip in place. There is no fracture. Further radiographs AP and lateral of the left hip have been requested and are pending. (1) Dislocation, hip Encounter type: initial encounter Laterality: left Qualified Code(s): S73.005A - Unspecified dislocation of left hip, initial encounter
[2023-09-02] MEDS ORDERED: fentaNYL citrate PF 100 MCG/2 ML VIAL ONE (05:45)
[2023-09-02] MEDS ORDERED: MIDAZOLAM HCL 1 MG/ML 2ML VIAL ONE (05:45)
[2023-09-02] MEDS ORDERED: PROPOFOL IV EMULSION 10 MG/ML 20 ML VIAL IV ONE (05:45)
[2023-09-02] MEDS ORDERED: ONDANSETRON INJ 2 MG/ML 2 ML VIAL ONE (05:45)
[2023-09-02] MEDS ORDERED: KETAMINE HCL INJ 50 MG/ML 10 ML VIAL ONE (05:48)
[2023-09-02] MEDS ORDERED: PROMETHAZINE HCL 6.25 MG in SODIUM CHLORIDE 0.9% 50 ML IV PRN (06:06)
[2023-09-02] MEDS ORDERED: fentaNYL citrate PF 100 MCG/2 ML VIAL IV PRN (06:06)
[2023-09-02] MEDS ORDERED: ATROPINE SULFATE 0.1 MG/ML 10ML SYR IV PRN (06:06)
[2023-09-02] MEDS ORDERED: ePHEDrine sulfate 50 MG/ML AMP IV PRN (06:06)
[2023-09-02] MEDS ORDERED: ONDANSETRON INJ 2 MG/ML 2 ML VIAL IV PRN ×2 (06:06→07:57)
--- NOTE | 2023-09-02 06:33 | Operative Report ---
Post Operative Report Pre & Post Diagnosis Operation Date: 09/02/23 06:00 Pre-Op Diagnosis: Left Total Hip Dislocation Post-Op Diagnosis: Left Total Hip Dislocation I identified the patient and participated in the time-out.: Yes Procedure Operation Date: 09/02/23 06:00 Actual Procedures p Closed Reduction Left Total Hip Dislocation(Left) - Pedro Vidal MD Surgeon Pedro Vidal MD Director Operating Room none Estimated Blood Loss 0 Findings Consistent with Post-Op Diagnosis Specimens none Anesthesia Type MAC Complications none Disposition Accompanied Patient To Recovery: No Disposition: Recovery Room Indications Patient is a 72-year-old female with a dislocated left total hip. She has had 1 prior left total hip dislocation. She was taken to the OR for closed reduction. Description of Procedure Informed consent. Patient identified. She identified the procedure site as the left hip. I marked with my initials. A preoperative surgical timeout performed. Antibiotics were not indicated. She was positioned supine on the operating room table and the anesthetic was administered. The examination demonstrated a shortened and internally rotated and abducted left hip. Fluoroscopic guidance was utilized. DVT prophylaxis was not indicated. After adequate analgesia close reduction was performed. Initially with the 9090 position. Anterior traction with abduction flexion and internal and external rotation. This initially did not work. I tried pulling longitudinally and varying degrees of hip flexion with rotation which also did not work. I then returned to the 9090 position and did flexion adduction and internal rotation and this caused the hip to reduce. The hip was then stable to 90 degrees of flexion in neutral position with internal rotation of about 15 to 20 degrees and external rotation of 30 degrees. Traffic Controller Cable fluoroscopic images were obtained in the AP and lateral planes of the whole implant and demonstrated a concentric reduction without evidence of complication or fracture. The patient was then awakened from anesthesia taken to recovery in stable condition. There were no specimens or complications there were no counts or blood loss. Hip abduction pillow was applied. Patient will be admitted to the hospital and supplied with a hip abduction brace and physical therapy. Will recheck her neurovascular status and if she is stable plan for discharge later today. I attest to the content of the Intraoperative Record and any orders documented therein. Any exceptions are noted below.
--- NOTE | 2023-09-02 06:38 | XRay Report ---
XR hip LT min 2V CLINICAL HISTORY: Left hip pain. COMPARISON: Pelvis radiograph September 01, 2023 at 11:15 PM. FINDINGS: There is persistent superior dislocation of the femoral component of the left hip arthropl asty with respect to the acetabular cup. There are no fractures. Right hip arthroplasty is noted on c rosstable lateral image. IMPRESSION: Dislocated femoral component of the left hip arthroplasty. No fractures. ACT 112: Negative or not required by law. Electronically signed by: Gerson Bower M.D. 09/02/2023 6:37 AM
--- NOTE | 2023-09-02 06:50 | Anesthesiology Progress Note ---
Date of Service September 02, 2023 Anesthesia Post Procedure Vital Signs Vital Signs: Pulse Pulse Resp BP BP Pulse Ox O2 Del Method 09/02/23 05:30 72 19 147/95 H 98 Room Air 09/02/23 05:01 72 20 138/87 97 Room Air 09/02/23 04:30 71 14 129/89 93 Room Air 09/02/23 04:00 71 15 136/85 93 Room Air 09/02/23 03:30 71 15 136/87 95 Room Air 09/02/23 03:00 72 17 136/86 93 Room Air 09/02/23 02:29 75 16 128/85 92 Room Air 09/02/23 02:01 73 21 128/79 93 Room Air 09/02/23 02:00 74 18 128/79 92 Room Air 09/02/23 01:54 74 09/02/23 01:30 74 23 129/81 92 Room Air 09/02/23 01:00 79 13 137/80 96 Room Air 09/02/23 00:30 76 17 141/82 H 96 Room Air 09/02/23 00:00 78 16 141/83 H 96 Room Air 09/01/23 23:30 83 16 131/85 94 Room Air 09/01/23 23:00 79 16 144/87 H 96 Room Air 09/01/23 23:00 84 22 99 Room Air 09/01/23 22:05 77 09/01/23 21:58 74 19 132/81 98 Room Air 09/01/23 21:58 74 19 132/81 98 Room Air Pain Intensity Left Hip: Pain Intensity: 3 Transfer of Care Handoff Completed per policy Notes Mental Status: alert / awake / arousable and participated in evaluation Patient Amnestic to Procedure: Yes Nausea / Vomiting: adequately controlled Pain: adequately controlled Airway Patency, RR, SpO2: stable & adequate BP & HR: stable & adequate Hydration State: stable & adequate Anesthetic Complications: no major complications apparent and Pt Satisfied with anesthetic care
--- NOTE | 2023-09-02 07:42 | XRay Report ---
XR pelvis 1-2V routine CLINICAL HISTORY: Left hip pain. COMPARISON: Pelvis radiograph April 01, 2018. FINDINGS: There is superior dislocation of the femoral component of the left hip arthroplasty with r espect to the acetabular cup. No fractures are identified. Visualized portions of the right hip arthr oplasty are intact. Sacroiliac joints and symphysis pubis are intact. IMPRESSION: Dislocated femoral component of the left hip arthroplasty. No fractures. ACT 112: Negative or not required by law. Electronically signed by: Gerson Bower M.D. 09/02/2023 7:41 AM
[2023-09-02] MEDS ORDERED: METOCLOPRAMIDE HCL INJ 5 MG/ML 2 ML VIAL IV PRN (07:57)
[2023-09-02] MEDS ORDERED: HYDROmorphone INJ 0.5 MG/0.5 ML SYR IV PRN (07:57)
[2023-09-02] MEDS ORDERED: NALOXONE HCL 0.4 MG/1 ML VIAL/CARP IV PRN (07:57)
[2023-09-02] MEDS ORDERED: MAGNESIUM HYDROXIDE SUSP 30 ML UDC PO PRN (07:57)
[2023-09-02] MEDS ORDERED: bisacodyL 10 MG SUPP PR PRN (07:57)
[2023-09-02] MEDS ORDERED: KETOROLAC 30 MG/ML VIAL IV PRN (07:57)
--- NOTE | 2023-09-02 08:06 | Fluoroscopy Report ---
INTRAOPERATIVE RADIOGRAPHS CLINICAL HISTORY: Dislocated left hip arthroplasty. Reduction images. Fluoro time: 14 seconds Ka,r: 3.06 mGy FINDINGS: 8 spot fluoroscopic views of the left hip and femur are correlated with radiographs dated . Images show successful reduction of the dislocated left hip arthroplasty with yazidi of near-anatomic alignment. There is no evidence of acute fracture on these fluoroscopic views. IMPRESSION: Intraoperative images from reduction of a dislocated left hip arthroplasty. Electronically signed by: Jeremias Madera M.D. 09/02/2023 8:05 AM
[2023-09-02] MEDS: SODIUM CHLORIDE 0.9% 1,000 ML IV SCH (10:14)
--- NOTE | 2023-09-02 10:18 | Orthopedic Progress Note ---
Date of Service September 02, 2023 Assessment & Plan (1) Dislocation, hip: Plan: The patient was educated regarding today's findings. She requires her hip abduction brace before being discharged. Continue with the abduction pillow until the brace is fitted. I reviewed postural indiscretions. Follow-up with Dr. Vidal or Dr. Zarate upon discharge. She will be reassessed later this afternoon Admission and Anticipated Discharge Date Admission Date: September 02, 2023 Subjective This 72-year-old female is seen today in her room. She is approximately 4 hours post closed hip reduction of her left total hip prosthesis. She states she is doing fine at this point. She has not moved much. Her hip abduction brace is in place. She has not seen the retail visual merchandiser for her hip spica splint. She currently denies any pain. No nausea or vomiting. No chest pain or shortness of breath. She would like to go home. Physical Exam Physical Exam: General: Well-developed, well-nourished, elderly female, in no acute distress. Laying in bed. Alert and oriented. Skin: Warm and dry with good turgor. No rashes. No edema. Musculoskeletal: The patient has intact motor function of the ankles and toes of both legs. States the left leg feels "spongy". There is no leg length discrepancy or rotational deformity. Neurologic: The patient has intact sensation to both lower extremities, though she complains of an altered sensation across the dorsum of the left foot and the L5 distribution on her lower leg. Sensation across the medial aspect of the leg. Peripheral pulses are 2+ bilaterally. Results & Data Vital Signs (Past 12 Hours) Vital Signs Temp Pulse Pulse Pulse Resp BP BP 09/02/23 07:58 36.5 C 75 16 123/74 09/02/23 07:45 36.5 C 75 14 113/71 09/02/23 07:30 69 14 129/77 09/02/23 07:15 36.5 C 71 12 131/80 09/02/23 07:07 36.4 C L 70 12 143/73 H 09/02/23 06:55 36.3 C L 75 10 L 134/85 09/02/23 06:45 36 C L 72 12 147/105 H 09/02/23 05:30 72 19 147/95 H 09/02/23 05:01 72 20 138/87 05/09/24 04:30 71 14 129/89 09/02/23 04:00 71 15 136/85 09/02/23 03:30 71 15 136/87 09/02/23 03:00 72 17 136/86 09/02/23 02:29 75 16 128/85 09/02/23 02:01 73 21 128/79 09/02/23 02:00 74 18 128/79 09/02/23 01:54 74 09/02/23 01:30 74 23 129/81 09/02/23 01:00 79 13 137/80 09/02/23 00:30 76 17 141/82 H 09/02/23 00:00 78 16 141/83 H 09/01/23 23:30 83 16 131/85 09/01/23 23:00 79 16 144/87 H 09/01/23 23:00 84 22 Pulse Ox O2 Del Method 09/02/23 07:58 94 Room Air 09/02/23 07:45 93 Room Air 09/02/23 07:30 94 Room Air 09/02/23 07:15 94 Room Air 09/02/23 07:07 98 Room Air 09/02/23 06:55 99 Room Air 09/02/23 06:45 99 Room Air 09/02/23 05:30 98 Room Air 09/02/23 05:01 97 Room Air 09/02/23 04:30 93 Room Air 09/02/23 04:00 93 Room Air 09/02/23 03:30 95 Room Air 09/02/23 03:00 93 Room Air 09/02/23 02:29 92 Room Air 09/02/23 02:01 93 Room Air 09/02/23 02:00 92 Room Air 09/02/23 01:54 09/02/23 01:30 92 Room Air 09/02/23 01:00 96 Room Air 09/02/23 00:30 96 Room Air 09/02/23 00:00 96 Room Air 09/01/23 23:30 94 Room Air 09/01/23 23:00 96 Room Air 09/01/23 23:00 99 Room Air (1) Dislocation, hip Encounter type: initial encounter Laterality: left Qualified Code(s): S73.005A - Unspecified dislocation of left hip, initial encounter
[2023-09-02] MEDS: DOCUSATE SODIUM 100 MG CAP PO SCH (11:50)
[2023-09-02] MEDS: traMADol HCL 50 MG TABLET PO PRN (11:51)
--- NOTE | 2023-09-02 15:09 | Discharge Summary ---
Date of Service September 02, 2023 Admission HPI Per Admitting Provider Laura is 72 years old. She bent over to get something out of from underneath her bed last evening about 7 PM and her left hip popped out. This [place] [address] Marilynn palma. She had a right hip done in [address] Zarate. She had previous dislocation of her left hip in approximately 2014. She complains of left hip pain and inability to move and ambulate. She has also developed some slight numbness on the top of her left foot. Due to her n.p.o. status anesthesia would not be possible until 4 AM. Discharge Data Consultations 09/02/23 00:21 Consult Orthopedic Surgery Stat Procedures Performed Operation Date: 09/02/23 06:00 Actual Procedures p Closed Reduction Left Total Hip Dislocation(Left) - Pedro Vidal MD Hospital Course (1) Dislocation, hip: Patient was kept in the hospital for observation after undergoing a closed reduction of her left total hip dislocation with Dr. Vidal on September 02, 2023. She tolerated the procedure well without any intraoperative complications. Her hip was reduced and confirmed by postreduction x-rays. After her procedure she was allowed out of bed, weight-bear as tolerated with the assistance of a walker and/or crutches. An abduction pillow was provided for her to have in place when in bed or sitting in a chair. Consult was placed for Anand Arechiga, the senior care assistant for a hip abduction brace. She needs to wear this brace at all times. Posterior hip precautions were reviewed. A physical therapy and Occupational Therapy consult was placed for reinforcement. She did well out of bed and was deemed safe for discharge to her home. She was given tramadol for postoperative pain. Also instructed to take Tylenol as needed. She was given a regular diet and her home medications were continued. Ice was applied to the left hip as needed for swelling and pain. Once her hip brace was obtained and she was safe by physical therapy and Occupational Therapy she was discharged to her home. She was discharged in stable conditions. Discharge instructions were reviewed. She will have follow-up appointments with Dr. Vidal in 10 to 14 days or she may follow-up with Dr. Zarate or [facility] if she wishes. She understands and agrees to the plan.
[2023-09-02] MEDS ORDERED: SENNA 8.6 MG TAB PO SCH (21:00)
[2023-09-03] MEDS ORDERED: ASPIRIN 81 MG ECTAB PO SCH (09:00)
== END 2023-09-02 18:47 | disposition home or self-care (01) | DRG 561 ==
LOC: ED 21:49 → OR 09-02 05:58 → 3W 09-02 05:58

== ENCOUNTER 2024-12-12 11:12 | Observation (INO) ==
--- NOTE | 2024-12-12 11:24 | Emergency Department Note ---
Impression & Plan Dislocation, hip Admission ED Provider Note HPI: History obtained from patient. The patient is a 74-year-old female who presents the emergency department with chief complaint of a possible left hip dislocation. Patient states that she has a history of prosthetic hip bilaterally. Patient states that she has had previous dislocations of the left prosthesis. Patient states today she was bending over from a seated position to plug in her computer and she felt a pop in her left hip and had some acute pain. Patient arrives via EMS with her left lower extremity internally rotated and flexed. Patient does have sensory function intact distally in the left foot and a palpable dorsalis pedis pulse on arrival. She is able to move the digits of her left foot on command on arrival. ROS: - Per HPI Differential Diagnosis: Left hip dislocation/prosthetic dislocation, periprosthetic fracture, pelvic fracture,, amongst other potential pathologies. *Outpatient medications and allergy history reviewed. PE: General: Alert HEENT: Normocephalic, trachea midline Eyes: Extraocular eye movement is intact, no scleral erythema Pulmonary: Clear to auscultation bilaterally, no wheezing Cardio: Regular rate and rhythm GI: Abdomen is soft to palpation : No suprapubic tenderness MSK: Left lower extremity is internally rotated and flexed at the hip, limited range of motion secondary to pain, there is a palpable dorsalis pedis pulse in the left foot on arrival Skin: No evidence of rash Neuro: Alert, no focal deficits Psychiatric: Cooperative INDEPENDENT INTERPRETATIONS: hall monitor: (As interpreted by myself): - An order was placed for continuous cardiac monitoring - Patient was noted to be in sinus rhythm with a rate of 80 SEDATION NOTE: Consent was obtained and both verbal and written forms from the patient or guardian. Patient was placed on desk monitor with end-tidal capnography and continuous pulse ox. -Indication for sedation: Left hip dislocation reduction -Timeout was performed at: 1234 -Medications administered: Propofol, 120 mg total -Sedation start time: 1234 -Sedation end time: 1254 -Complications encountered: None On reexamination following and sedation time, patient is alert, following commands, airway is intact and patient is saturating well on room air. Interventions provided in ED: - IV propofol, IV morphine, IV Zofran Medical Decision Making: IV was established and lab work obtained, patient was placed on desk monitor. X-ray imaging of the left hip confirms evidence of prosthetic dislocation. Patient was given IV morphine and IV Zofran here in the ED for pain. I did discuss the patient's presentation with the on-call orthopedic midlevel provider for Dr. Zarate, Moris Doan PA-C, he did evaluate the patient at the bedside and assisted with reduction of the left hip dislocation. Please see procedure note for details. Patient was sedated with IV propofol here in the ED without complication. Follow-up x-ray imaging shows anatomic alignment of the left hip prosthesis. On my reevaluation of the patient she is having difficulty dorsiflexing her foot, she states that she was having a similar sensation just shortly after the dislocation occurred and was having this sensation prior to arrival to the ED. Orthopedics did reevaluate the patient and placed the patient in a left lower extremity splint. Unclear source for the foot drop at this time, she does mention that she seemed to be developing the symptoms prior to the reduction of the dislocated prosthesis. X-ray imaging of the left foot was obtained and shows no evidence of fracture. On my reevaluation following splint placement, the patient does have some ability to dorsiflex but not with 5 out of 5 strength. Given the patient's ambulatory dysfunction recommendation was made by the orthopedic midlevel provider (Moris Doan PA-C) for admission to the service of Dr. Zarate and the patient was placed for admission by the orthopedic service directly. Plan will be to obtain CT imaging of the hip and further manage the patient as an inpatient. Patient was placed for admission in stable condition. Consultants/Discussions held with other healthcare providers: - Orthopedics, Dr. Zarate/Moris Doan PA-C Disposition discussion held by myself with: - Patient Diagnosis: 1. Left hip dislocation, acute 2. Left foot drop, acute 3. Ambulatory dysfunction, acute Disposition: Admission Rustam Novoa DO Emergency Medicine Past Med/Surg History Problem List (Updated 12/12/24 @ 14:48 by Moris Doan PA-C) Left foot drop Dislocation, hip (Acute) Vitamin B12 deficiency Vitamin D deficiency RLS (restless legs syndrome) Chronic rhinitis Moderate persistent asthma Allergies DJD of shoulder (Acute 06/08/14) Displaced fracture of olecranon process with intraarticular extension of right ulna, initial encounter for open fracture type IIIA, IIIB, or IIIC (Acute) Abnormality of gait (Acute) Arthralgia of multiple sites (Acute) Cervicalgia (Acute) Classic migraine with aura (Acute) Depression with anxiety (Acute) Fatigue (Acute) Herpes simplex (Acute) Insomnia (Acute) Sciatica (Acute) SVT (supraventricular tachycardia) Mild mitral regurgitation Palpitations Encounter for medication monitoring WALKER (dyspnea on exertion) Elevated LDL cholesterol level Hypertension Mitral regurgitation Trochanteric bursitis, right hip Asthma STABLE Migraines ON LAMICTAL; DENIES SEIZURE HISTORY Anxiety Osteoarthritis Medical History History of COVID-19 Depression Valvular disease Syncope Hx of endometriosis GERD (gastroesophageal reflux disease) Surgical History Hx of colonoscopy Hx of total hip arthroplasty History of laparotomy History of hysterectomy Hx of laparoscopy History of open reduction and internal fixation (ORIF) procedure History of tonsillectomy History of total shoulder replacement Family History Father Family hx of colon cancer Colon cancer Aunt Breast cancer Grandfather (Maternal) Myocardial infarction Mother Myocardial infarction Other Family history non-contributory Denies family history of Ovarian cancer Prostate cancer Social History Smoking Status: Never smoker Second Hand Exposure: No; Do You Dip or Chew Tobacco: No; Hx Alcohol Use: Yes Alcohol type: beer, wine and hard liquor Hx Substance Use: No Preferred Language: Wolof Communication Ability: Effective Visual Impairment: No Limitations Hearing Ability: Normal Fern Picker Required: No Beliefs That Will Affect Care: None marital status: Current Living Situation: Alone Current Living Situation Comment: CURRENTLY HAS SOMEONE LIVING WITH HER NOW current occupational status: employed Feels Safe at Home: Yes Childhood Exposure to Second-Hand Smoke: Yes Dental Care, Regularly: Yes Physical Activity Frequency: Daily Seatbelt Use: always Sunscreen Use: Yes Assistive Devices: Cane, Walker and Wheelchair Allergies Allergies Allergy/AdvReac Type Severity Reaction Status Date / Time cat dander Allergy Mild Verified 11/15/24 13:55 Sulfa (Sulfonamide Allergy Mild UNKNOWN Verified 11/15/24 13:55 Antibiotics) oxycodone [From Percocet] Allergy itchy Verified 11/15/24 13:55 sulfabenzamide Allergy Unknown Verified 11/15/24 13:55 Home Meds Home Medications Medication Instructions Recorded Confirmed sumatriptan succinate 4 mg/0.5 mL 4 mg subcut QDD PRN MIGRAINES 01/21/18 11/15/24 subcutaneous cartridge (refill) (Imitrex STATdose Refill) omeprazole 20 mg capsule,delayed 20 mg PO QAM PRN Acid Reflux #30 01/03/20 11/15/24 release caps cyclosporine 0.05 % eye drops in a 1 drp ophthalmic (eye) Q12H 02/15/23 11/15/24 dropperette (Restasis) [id number] 250 2 tab PO Q6H PRN 03/25/23 11/15/24 mg-250 mg-65 mg tablet (Excedrin Migraine) bupropion HCl 100 mg tablet,12 hr 150 mg PO QAM 08/18/23 11/15/24 sustained-release (Wellbutrin SR) duloxetine 40 mg capsule,delayed 60 mg PO QAM 05/11/24 11/15/24 release flaxseed oil 1 cap PO DAILY 05/11/24 11/15/24 zaleplon 10 mg capsule 5 mg PO HS PRN sleep 05/11/24 11/15/24 Previous Rx's Medication Instructions Recorded fluticasone propionate 110 2 puff inhalation BID #12 grams 09/02/22 mcg/actuation HFA aerosol inhaler (Flovent HFA) inhalational spacing device #1 ea 09/02/22 azelastine 137 mcg (0.1 %) nasal 2 spray intranasal BID PRN nasal 09/28/22 spray congestion #90 mL valacyclovir 1 gram tablet 1,000 mg PO Q12H #30 tabs 03/31/23 (Valtrex) cholecalciferol (vitamin D3) 50 50 mcg PO DAILY #30 caps 07/05/23 mcg (2,000 unit) capsule cyanocobalamin (vitamin B-12) 1,000 mcg sublingual DAILY #30 tabs 07/05/23 1,000 mcg sublingual tablet albuterol sulfate 90 mcg/actuation 1 puff inhalation Q6H PRN Wheezing 08/09/23 aerosol inhaler #18 grams sumatriptan succinate 100 mg 100 mg PO ONCE PRN MIGRAINES #27 05/09/24 tablet (Imitrex) tabs metoprolol succinate 25 mg 12.5 mg (1/2 x 25 mg) PO DAILY #45 05/11/24 tablet,extended release 24 hr tabs losartan 100 1 tab PO QAM #90 tabs 07/06/24 mg-hydrochlorothiazide 25 mg tablet (Hyzaar) lamotrigine 25 mg tablet (Lamictal) 50 mg (2 x 25 mg) PO DAILY #60 tabs 10/16/24 prednisone 10 mg tablet See Rx Instructions PO DAILY #36 11/03/24 tabs Results & Data (ED) Vital Signs Vital Signs - 24 hr 12/12/24 11:18 12/12/24 11:50 12/12/24 12:16 Temperature 36.6 C Temperature Source Oral Pulse Rate 78 77 Pulse Rate [Left Apical] 77 Pulse Rhythm Regular Respiratory Rate 18 22 Respiratory Effort / Characteristics Non-Labored Spontaneous Non-Labored Spontaneous Respiratory Depth Normal Normal Respiratory Pattern Regular Regular Blood Pressure 144/105 H Blood Pressure [Right Arm] 151/99 H Blood Pressure Mean 118 Blood Pressure Mean [Right Arm] 116 Blood Pressure Position Sitting Blood Pressure Position [Right Arm] Pulse Oximetry 99 93 Oxygen Delivery Method Room Air Room Air Oxygen Flow Rate Sepsis Recent Fever Within 48 Hours No Sepsis New/Unexplained Change in Mental Status No Sepsis Action Taken by Nursing No Action Required End-Tidal CO2 End Tidal CO2 (18-54mmHg) 12/12/24 12:24 12/12/24 12:31 12/12/24 12:35 Temperature Temperature Source Pulse Rate 75 75 Pulse Rate [Left Apical] Pulse Rhythm Respiratory Rate 18 Respiratory Effort / Characteristics Respiratory Depth Respiratory Pattern Blood Pressure 145/83 H 151/102 H Blood Pressure [Right Arm] Blood Pressure Mean 98 121 Blood Pressure Mean [Right Arm] Blood Pressure Position Blood Pressure Position [Right Arm] Pulse Oximetry 94 100 Oxygen Delivery Method Room Air Nasal Cannula Oxygen Flow Rate 10 Sepsis Recent Fever Within 48 Hours Sepsis New/Unexplained Change in Mental Status Sepsis Action Taken by Nursing End-Tidal CO2 42 End Tidal CO2 (18-54mmHg) 12/12/24 12:40 12/12/24 12:44 12/12/24 12:45 Temperature Temperature Source Pulse Rate 72 69 63 Pulse Rate [Left Apical] Pulse Rhythm Respiratory Rate 20 3 L 12 Respiratory Effort / Characteristics Respiratory Depth Shallow Respiratory Pattern Blood Pressure 145/95 H 158/99 H Blood Pressure [Right Arm] Blood Pressure Mean 118 118 Blood Pressure Mean [Right Arm] Blood Pressure Position Blood Pressure Position [Right Arm] Pulse Oximetry 94 100 99 Oxygen Delivery Method Nasal Cannula Nasal Cannula Nasal Cannula Oxygen Flow Rate 10 15 15 Sepsis Recent Fever Within 48 Hours Sepsis New/Unexplained Change in Mental Status Sepsis Action Taken by Nursing End-Tidal CO2 32 47 End Tidal CO2 (18-54mmHg) 35 12/12/24 12:50 12/12/24 12:55 12/12/24 13:00 Temperature Temperature Source Pulse Rate 64 65 71 Pulse Rate [Left Apical] Pulse Rhythm Respiratory Rate 14 12 12 Respiratory Effort / Characteristics Respiratory Depth Respiratory Pattern Blood Pressure 142/89 H 149/93 H Blood Pressure [Right Arm] 140/91 Blood Pressure Mean 114 111 Blood Pressure Mean [Right Arm] Blood Pressure Position Blood Pressure Position [Right Arm] Pulse Oximetry 100 100 99 Oxygen Delivery Method Nasal Cannula Nasal Cannula Nasal Cannula Oxygen Flow Rate 15 8 4 Sepsis Recent Fever Within 48 Hours Sepsis New/Unexplained Change in Mental Status Sepsis Action Taken by Nursing End-Tidal CO2 36 36 End Tidal CO2 (18-54mmHg) 12/12/24 13:05 12/12/24 13:30 12/12/24 13:40 Temperature Temperature Source Pulse Rate 72 69 72 Pulse Rate [Left Apical] Pulse Rhythm Respiratory Rate 16 14 20 Respiratory Effort / Characteristics Respiratory Depth Respiratory Pattern Blood Pressure 141/88 H 129/96 134/84 Blood Pressure [Right Arm] Blood Pressure Mean 129 107 103 Blood Pressure Mean [Right Arm] Blood Pressure Position Blood Pressure Position [Right Arm] Pulse Oximetry 100 100 97 Oxygen Delivery Method Nasal Cannula Nasal Cannula Oxygen Flow Rate 2 2 Sepsis Recent Fever Within 48 Hours Sepsis New/Unexplained Change in Mental Status Sepsis Action Taken by Nursing End-Tidal CO2 40 44 End Tidal CO2 (18-54mmHg) 12/12/24 15:08 Temperature Temperature Source Pulse Rate Pulse Rate [Left Apical] 79 Pulse Rhythm Respiratory Rate 16 Respiratory Effort / Characteristics Non-Labored Spontaneous Respiratory Depth Normal Respiratory Pattern Regular Blood Pressure Blood Pressure [Right Arm] 140/87 Blood Pressure Mean Blood Pressure Mean [Right Arm] 104 Blood Pressure Position Blood Pressure Position [Right Arm] Semi-fowlers Pulse Oximetry 97 Oxygen Delivery Method Room Air Oxygen Flow Rate Sepsis Recent Fever Within 48 Hours Sepsis New/Unexplained Change in Mental Status Sepsis Action Taken by Nursing End-Tidal CO2 End Tidal CO2 (18-54mmHg) Laboratory Data 12/12/24 11:28 12/12/24 11:28 Lab Results 12/12/24 Range/Units 11:28 WBC 6.66 (4.8-10.8) K/ul RBC 4.73 (4.20-5.40) M/uL Hgb 14.3 (12.0-16.0) g/dl Hct 42.3 (37.0-47.0) % MCV 89.4 (80.0-100.0) fL MCH 30.2 (25.0-34.0) pg MCHC 33.8 (32.0-36.0) g/dL RDW Std Deviation 42.4 (36.4-46.3) fL RDW Coeff of Ino 12.9 (11.5-14.5) % Plt Count 348 (130-400) K/uL MPV 8.8 L (9.4-12.4) fL Immature Gran % (Auto) 0.3 % Neut % (Auto) 52.9 % Lymph % (Auto) 31.2 % [place] % (Auto) 10.8 % Eos % (Auto) 3.3 % Baso % (Auto) 1.5 % Neut # (Auto) 3.52 (1.40-6.50) K/uL Lymph # (Auto) 2.08 (1.20-3.40) K/uL [place] # (Auto) 0.72 H (0.11-0.59) K/uL Eos # (Auto) 0.22 (0.00-0.50) K/uL Baso # (Auto) 0.10 (0.00-0.20) K/uL Immature Gran # (Auto) 0.02 (0.01-0.20) K/uL PT 11.3 (9.0-12.0) Seconds INR 1.0 (0.9-1.1) Sodium 136 (136-145) mmol/L Potassium 3.5 (3.5-5.1) mmol/L Chloride 98 (98-107) mmol/L Carbon Dioxide 32 (21-32) mmol/L Anion Gap 6 (3-11) BUN 17 (6-23) mg/dl Creatinine 0.88 (0.6-1.2) mg/dl Est Cr Clr Drug Dosing 53.2 ml/min eGFR 69.35 BUN/Creatinine Ratio 19.3 (10-20) Glucose 86 (70-99(Fasting)) mg/dl Calcium 9.6 (8.6-10.3) mg/dl Total Bilirubin 0.9 (0.2-1.0) mg/dl AST 19 (13-39) U/L ALT 10 (7-52) U/L Alkaline Phosphatase 78 (34-104) U/L Total Protein 6.8 (6.0-8.3) gm/dl Albumin 4.1 (3.4-5.0) gm/dl Globulin 2.7 (2.5-4.0) gm/dl Albumin/Globulin Ratio 1.5 (0.9-2) Administered Medications Discontinued Medications Sodium Chloride (Nss) 500 mls @ 999 mls/hr IV .Q31M STA Stop: 12/12/24 11:52 Last Infusion: 12/12/24 12:04 Dose: Infused Documented By: Admin: 12/12/24 11:33 Dose: 999 mls/hr Documented By: lexis Morphine Sulfate (Morphine Sulfate 4 Mg/Ml 1 Ml Carp\Vial) 4 mg IV NOW STA Stop: 12/12/24 11:23 Last Admin: 12/12/24 11:32 Dose: 4 mg Documented By: lexis Ondansetron HCl (Ondansetron Inj 2 Mg/Ml 2 Ml Vial) 4 mg IV NOW STA Stop: 12/12/24 11:23 Last Admin: 12/12/24 11:32 Dose: 4 mg Documented By: lexis Imaging Data Radiologist's Impression: Hip X-Ray 12/12/24 11:23 XR hip LT min 2V CLINICAL HISTORY: possible d/l COMPARISON: 09/15/2023 FINDINGS: There is posterior lateral dislocation of the left hip prosthesis. IMPRESSION: Dislocation of the left hip prosthesis. ACT 112: Negative or not required by law. Electronically signed by: Juan David Bueno M.D. 12/12/2024 12:18 PM Hip X-Ray 12/12/24 12:47 LEFT HIP 2 VIEWS CLINICAL HISTORY: Postreduction examination. FINDINGS: AP and crosstable lateral views of the left hip are compared to study performed earlier the same day 12/12/2024. The skeletal structures are osteopenic. There has been successful reduction of the dislocated left hip arthroplasty with sabianist of near-anatomic alignment. No fracture is seen involving the left proximal femur or the visualized left hemipelvis. There is degenerative sclerosis of the left sacroiliac joint and the pubic symphysis. The overlying soft tissues are within normal limits. A right hip arthroplasty is partially visualized on the crosstable lateral view. IMPRESSION: 1. Successful reduction of the dislocated left hip arthroplasty with sabianist of near-anatomic alignment. 2. No fracture is seen. Electronically signed by: Jeremias Madera M.D. 12/12/2024 1:34 PM Foot X-Ray 12/12/24 14:13 XR foot LT min 3V routine CLINICAL HISTORY: foot drop COMPARISON: None FINDINGS: Bunion is present. There is a small chronic appearing osseous density adjacent to the lateral base of the fifth metatarsal, unfused ossicle versus sequela of old injury. No acute fracture or dislocation. There are mild degenerative changes at the first TMT joint and first MTP joint without erosions. IMPRESSION: No acute fracture seen. ACT 112: Negative or not required by law. Electronically signed by: Juan David Bueno M.D. 12/12/2024 2:51 PM Discharge Plan Visit Data Chief Complaint: Hip Pain Stated Complaint: HIP DISLOCATION ED Provider: Rustam Novoa Discharge Problem: Dislocation, hip Patient Disposition: Home - Self-Care Condition: Good Discharge Instructions Activity Restrictions/Additional Instructions: Please follow-up with your primary care doctor in 2 to 3 days for reassessment further care. Please follow-up with orthopedics in the office as discussed, please call to schedule this appointment. Please keep your knee immobilizer in place until your outpatient follow-up with orthopedics as arranged. Please return the emergency room if you develop any new or acutely worsening symptoms. Forms Stand Alone Forms: Anesthesia/Sedation, Adult, [facility], Important Visit Information Prescriptions Prescriptions: No Action azelastine 137 mcg (0.1 %) aerosol,spray 2 spray intranasal BID PRN (Reason: nasal congestion) Qty: 90 3RF Rx Instructions: administer into each nostril valacyclovir [Valtrex] 1 gram tablet 1,000 mg PO Q12H Qty: 30 2RF Rx Instructions: Takes this medicine along w/Imitrex, due to mouth sores from Imitrex albuterol sulfate 90 mcg/actuation HFA aerosol inhaler 1 puff INHALATION Q6H PRN (Reason: Wheezing) Qty: 18 3RF sumatriptan succinate [Imitrex] 100 mg tablet 100 mg PO ONCE PRN (Reason: MIGRAINES) Qty: 27 3RF Rx Instructions: May repeat in 2 hours if needed losartan-hydrochlorothiazide [Hyzaar] 100-25 mg tablet 1 tab PO QAM Qty: 90 3RF lamotrigine [Lamictal] 25 mg tablet 50 mg PO DAILY Qty: 60 5RF Excedrin Migraine 250-250-65 mg tablet 2 tab PO Q6H PRN cyclosporine [Restasis] 0.05 % dropperette 1 drp ophthalmic (eye) Q12H fluticasone propionate [Flovent HFA] 110 mcg/actuation HFA aerosol inhaler 2 puff inhalation BID Qty: 12 11RF (DME) inhalational spacing device Spacer See Rx Instructions .ROUTE .MEDSUPPLY Qty: 1 0RF Rx Instructions: As directed omeprazole 20 mg capsule,delayed release(DR/EC) 20 mg PO QAM PRN (Reason: Acid Reflux) Qty: 30 zaleplon 10 mg capsule 5 mg PO HS PRN (Reason: sleep) flaxseed oil 1 cap PO DAILY metoprolol succinate 25 mg tablet extended release 24 hr 12.5 mg PO DAILY Qty: 45 3RF prednisone 10 mg tablet See Rx Instructions PO DAILY Qty: 36 0RF Rx Instructions: 6 tabs today-once then 4 tabs daily x3 days, 3 tabs daily x3 days, 2 tabs daily x3 days and 1 tab daily x3 days orally daily; cyanocobalamin (vitamin B-12) 1,000 mcg tablet, sublingual 1,000 mcg sublingual DAILY Qty: 30 0RF cholecalciferol (vitamin D3) 50 mcg (2,000 unit) capsule 50 mcg PO DAILY Qty: 30 0RF sumatriptan succinate [Imitrex STATdose Refill] 4 mg/0.5 mL Cartridge 4 mg subcut QDD PRN (Reason: MIGRAINES) Rx Instructions: has not used in a while bupropion HCl [Wellbutrin SR] 100 mg tablet sustained-release 12 hr 150 mg PO QAM duloxetine 40 mg capsule,delayed release(DR/EC) 60 mg PO QAM Referrals Referrals: Pro,Sebastian Brady MD [Primary Care Provider] - Yaya Zarate MD [Physician] -
[2024-12-12] MEDS: ONDANSETRON INJ 2 MG/ML 2 ML VIAL IV STA (11:32)
[2024-12-12] MEDS: MoRPHine SULFATE 4 MG/ML 1 ML CARP\\VIAL IV STA (11:32)
[2024-12-12] MEDS: SODIUM CHLORIDE 0.9% 500 ML IV STA (11:33)
[2024-12-12 11:44] LABS: Hematocrit (blood only) 42.3 % (37.0-47.0); Hemoglobin 14.3 g/dl (12.0-16.0); Immature Granulocytes # (auto) 0.02 K/uL (0.01-0.20); Immature Granulocytes % (auto) 0.3 %; Mean Corpuscular Hemoglobin 30.2 pg (25.0-34.0); Mean Corpuscular Volume 89.4 fL (80.0-100.0); Platelet Count 348 K/uL (130-400); RDW Standard Deviation 42.4 fL (36.4-46.3); Red Blood Count 4.73 M/uL (4.20-5.40); White Blood Count 6.66 K/ul (4.8-10.8)
[2024-12-12 12:10] LABS: Alanine Aminotransferase 10.0 U/L (7-52); Albumin Globulin Ratio 1.5 (0.9-2); Alkaline Phosphatase 78.0 U/L (34-104); Anion Gap 6.0 (3-11); Bilirubin,Total 0.9 mg/dl (0.2-1.0); Blood Urea Nitrogen 17.0 mg/dl (6-23); Calcium 9.6 mg/dl (8.6-10.3); Carbon Dioxide 32.0 mmol/L (21-32); Chloride 98.0 mmol/L (98-107); Creatinine Clr Calc Pharmacy 53.2 ml/min; Globulin 2.7 gm/dl (2.5-4.0); Glucose 86.0 mg/dl (70-99(Fasting)); Potassium 3.5 mmol/L (3.5-5.1); Sodium 136.0 mmol/L (136-145); Total Protein 6.8 gm/dl (6.0-8.3)
[2024-12-12 12:17] LABS: INR 1.0 (0.9-1.1); Prothrombin Time 11.3 Seconds (9.0-12.0)
--- NOTE | 2024-12-12 12:19 | Orthopedic Consultation ---
Date of Service December 12, 2024 Assessment & Plan (1) Dislocation, hip: * Case/imaging reviewed and discussed with Dr Zarate * Bedside closed reduction, see procedure note * Knee immobilizer applied * Disposition: home * Daily treatment: Physical Therapy/ Occupational Therapy per protocol * Weight bearing status: WBAT in KI * Pain control * Remainder care per primary team * Close outpatient follow-up with Dr Zarate team Addendum: Postreduction it was noted that the patient had difficulty dorsiflexing her foot. She did have numbness on the top of her foot prereduction apparently. It was a fairly difficult reduction as per Moris Doan the physician dam tender assistant requiring quite a bit of sedation. On postreduction exam she is able to plantarflex her foot but not dorsiflex her foot. Apparently this was fairly dense initially but by the time I was able to examine her post reduction it did seem like her toes were moving to some degree in dorsiflexion. She had good strong plantarflexion. We did do a CT scan to evaluate the reduction and it does look like it is a concentric reduction. On the plain films I thought there was some eccentric city to it. There may be some polyethylene wear but it is not appear that there is any soft tissue within the joint. The fact that her range of motion was essentially pain-free on exam this afternoon after the reduction and the fact that the nerve seems to be returning and there is no obvious soft tissue in the acetabulum were going to observe this overnight and hopefully this will improve relatively quickly. In the meantime she has been splinted. In addition to the tibial component of the sciatic nerve seems to be working fine and is just the peroneal component which would make it difficult to consider entrapment. Will follow this and reexamine in the morning. All questions were answered. History of Present Illness Reason for Consultation: Left hip pain Requesting Physician: . .Patient is a 74 y/o female with left hip pain. PMH including SVT, mitral regurgitation, HTN, asthma. Surgical history including right CONRADO by Dr Zarate, and left CONRADO approximately 15 years ago by OSH. Previous left CONRADO dislocation about 1 year ago. Presents to hospital with left hip pain and concern for dislocation after bending over this morning and feeling a pop in the left hip. Deformity and unable to ambulate following the incident. Current workup including XR left hip demonstrating CONRADO dislocation. Orthopedics consulted for management recommendations, bedside reduction. At time of exam patient lying in bed, no acute distress. Reports left hip pain and inability to move the left leg secondary to pain. Reported numbness to the dorsal foot, able to flex and extend toes. No assistive devices at baseline. Allergies Allergy/AdvReac Type Severity Reaction Status Date / Time cat dander Allergy Mild Verified 11/15/24 13:55 Sulfa (Sulfonamide Allergy Mild UNKNOWN Verified 11/15/24 13:55 Antibiotics) oxycodone [From Percocet] Allergy itchy Verified 11/15/24 13:55 sulfabenzamide Allergy Unknown Verified 11/15/24 13:55 Home Medications Medication Instructions Recorded Confirmed Type sumatriptan succinate 4 mg/0.5 mL 4 mg subcut QDD PRN MIGRAINES 01/21/18 0 11/15/24 History subcutaneous cartridge (refill) (Imitrex STATdose Refill) omeprazole 20 mg capsule,delayed 20 mg PO QAM PRN Acid Reflux #30 01/03/20 11/15/24 History release caps fluticasone propionate 110 2 puff inhalation BID #12 grams 09/02/22 11/15/24 Rx mcg/actuation HFA aerosol inhaler (Flovent HFA) inhalational spacing device #1 ea 09/02/22 11/15/24 Rx azelastine 137 mcg (0.1 %) nasal 2 spray intranasal BID PRN nasal 09/28/22 12/12/24 Rx spray congestion #90 mL cyclosporine 0.05 % eye drops in a 1 drp ophthalmic (eye) Q12H 02/15/23 11/15/24 History dropperette (Restasis) avgtfns-shygwhgkijway-oylgtpqh 250 2 tab PO Q6H PRN headache. 03/25/23 12/12/24 History mg-250 mg-65 mg tablet (Excedrin Migraine) valacyclovir 1 gram tablet 1,000 mg PO Q12H #30 tabs 03/31/23 11/15/24 Rx (Valtrex) cholecalciferol (vitamin D3) 50 50 mcg PO DAILY #30 caps 07/05/23 12/12/24 Rx mcg (2,000 unit) capsule cyanocobalamin (vitamin B-12) 1,000 mcg sublingual DAILY #30 tabs 07/05/23 12/12/24 Rx 1,000 mcg sublingual tablet albuterol sulfate 90 mcg/actuation 1 puff inhalation Q6H PRN Wheezing 08/09/23 12/12/24 Rx aerosol inhaler #18 grams bupropion HCl 100 mg tablet,12 hr 150 mg PO QAM 08/18/23 12/12/24 History sustained-release (Wellbutrin SR) sumatriptan succinate 100 mg 100 mg PO ONCE PRN MIGRAINES #27 05/09/24 11/15/24 Rx tablet (Imitrex) tabs duloxetine 40 mg capsule,delayed 60 mg PO QAM 05/11/24 11/15/24 History release flaxseed oil 1 cap PO DAILY 05/11/24 11/15/24 History metoprolol succinate 25 mg 12.5 mg (1/2 x 25 mg) PO DAILY #45 05/11/24 11/15/24 Rx tablet,extended release 24 hr tabs zaleplon 10 mg capsule 5 mg PO HS PRN sleep 05/11/24 11/15/24 History losartan 100 1 tab PO QAM #90 tabs 07/06/24 11/15/24 Rx mg-hydrochlorothiazide 25 mg tablet (Hyzaar) lamotrigine 25 mg tablet (Lamictal) 50 mg (2 x 25 mg) PO DAILY #60 tabs 10/16/24 11/15/24 Rx Past Med/Surg History Problem List (Updated 12/12/24 @ 14:48 by Moris Doan PA-C) Left foot drop Dislocation, hip (Acute) Vitamin B12 deficiency Vitamin D deficiency RLS (restless legs syndrome) Chronic rhinitis Moderate persistent asthma Allergies DJD of shoulder (Acute 06/08/14) Displaced fracture of olecranon process with intraarticular extension of right ulna, initial encounter for open fracture type IIIA, IIIB, or IIIC (Acute) Abnormality of gait (Acute) Arthralgia of multiple sites (Acute) Cervicalgia (Acute) Classic migraine with aura (Acute) Depression with anxiety (Acute) Fatigue (Acute) Herpes simplex (Acute) Insomnia (Acute) Sciatica (Acute) SVT (supraventricular tachycardia) Mild mitral regurgitation Palpitations Encounter for medication monitoring WALKER (dyspnea on exertion) Elevated LDL cholesterol level Hypertension Mitral regurgitation Trochanteric bursitis, right hip Asthma STABLE Migraines ON LAMICTAL; DENIES SEIZURE HISTORY Anxiety Osteoarthritis Medical History History of COVID-19 Depression Valvular disease Syncope Hx of endometriosis GERD (gastroesophageal reflux disease) Surgical History Hx of colonoscopy Hx of total hip arthroplasty History of laparotomy History of hysterectomy Hx of laparoscopy History of open reduction and internal fixation (ORIF) procedure History of tonsillectomy History of total shoulder replacement Family History Father Family hx of colon cancer Colon cancer Aunt Breast cancer Grandfather (Maternal) Myocardial infarction Mother Myocardial infarction Other Family history non-contributory Denies family history of Ovarian cancer Prostate cancer Social History Smoking Status: Never smoker Second Hand Exposure: No; Do You Dip or Chew Tobacco: No; Hx Alcohol Use: Yes Alcohol type: beer, wine and hard liquor Hx Substance Use: No Preferred Language: Kiswahili Communication Ability: Effective Visual Impairment: No Limitations Hearing Ability: Normal Draw End Hand Required: No Beliefs That Will Affect Care: None marital status: Current Living Situation: Alone Current Living Situation Comment: CURRENTLY HAS SOMEONE LIVING WITH HER NOW current occupational status: employed Feels Safe at Home: Yes Childhood Exposure to Second-Hand Smoke: Yes Dental Care, Regularly: Yes Physical Activity Frequency: Daily Seatbelt Use: always Sunscreen Use: Yes Assistive Devices: Cane, Walker and Wheelchair Review of Systems All systems reviewed & are unremarkable except as noted in HPI & below. Physical Exam . * General: Alert and oriented, no acute distress * Constitutional: well-developed, well-nourished. * Respiratory: Normal respiratory effort, no distress * Gastrointestinal: No tenderness to palpation, no rigidity or guarding. * Skin: No rash or lesion. * Neurologic: Grossly normal * Musculoskeletal: Left LE shortened and internally rotated. Otherwise no obvious deformity or overlying skin changes to left leg. TTP left hip region, otherwise no specific tenderness of the distal thigh, knee, lower leg. ROM hip not assessed. AROM foot/ankle intact. Toe flexion and extension intact. Sensation intact plantar foot, decreased sensation plantar foot. Brisk capillary refill all digits. Results & Data Results & Data Laboratory Results . Diagnostic Findings . PG Care Time/CCT Total # of Minutes Spent Total Time Spent with Patient: Total time spent is greater than 50% in coordination of care (as documented) at patient's floor/unit and/or counseling patient: Coding [place] [address] IN/OBS CONSULT LVL 4,60M Patient Type Established Medical Decision Making Moderate Complexity Diagnoses Dislocation, hip S73.005A Encounter type: initial encounter Laterality: left (1) Dislocation, hip Encounter type: initial encounter Laterality: left Qualified Code(s): S73.005A - Unspecified dislocation of left hip, initial encounter
--- NOTE | 2024-12-12 12:20 | XRay Report ---
XR hip LT min 2V CLINICAL HISTORY: possible d/l COMPARISON: 09/15/2023 FINDINGS: There is posterior lateral dislocation of the left hip prosthesis. IMPRESSION: Dislocation of the left hip prosthesis. ACT 112: Negative or not required by law. Electronically signed by: Juan David Bueno M.D. 12/12/2024 12:18 PM
[2024-12-12] MEDS: PROPOFOL IV EMULSION 10 MG/ML 20 ML VIAL IV STA (12:50)
--- NOTE | 2024-12-12 12:56 | Procedure Note ---
Procedure Note Date of Service December 12, 2024 Procedure: Close reduction of left prosthetic hip Indication: Left prosthetic hip dislocation Procedure: After explanation of the x-ray findings and the diagnosis, prognosis and treatment options for Left prosthetic hip dislocation, I explained the purpose of closed reduction to the patient. The patient was agreeable to proceed. We timed out to confirm procedure, site, laterality. Conscious sedation was performed by ED team, see procedure note. After obtaining appropriate sedation close reduction technique was performed with satisfactory reduction of the prosthetic hip joint. Knee immobilizer was applied. Patient was aroused from sedation without complication. Postreduction x-ray confirmed alignment. Patient tolerated procedure well. Findings: * Post-reduction XR confirmed reduction of prosthetic hip joint Plan: * Maintain knee immobilizer * WBAT in KI * Hip precautions encouraged * Ok for discharge when recovered from sedation * Office f/u Dr Zarate team Postreduction the patient was noted to have some degree of peroneal nerve palsy/weakness. It was a fairly difficult reduction as per the physician teacher's assistant. By the time I was able to examine her postreduction it did appear that the. Neural component was returning. Her tibial component was never deficient. We did get a CT scan to evaluate make sure there is no soft tissue trapped in the joint. In addition the tibial component of the peroneal nerve is working appropriately. In light of all these findings I think it is just observed best to observe her overnight in the hospital. Will begin mobilizing her again in the morning and see how her function returns. Coding Additional Codes Date of Service ([facility].SURGERY)
--- NOTE | 2024-12-12 13:01 | Pre Anesthesia Assessment ---
Date of Service December 12, 2024 Pre Sedation Assessment Vital Signs Temp Pulse Pulse Resp BP BP Pulse Ox 12/12/24 12:31 145/83 H 12/12/24 12:24 75 94 12/12/24 12:16 77 22 151/99 H 93 12/12/24 11:50 77 12/12/24 11:18 36.6 C 78 18 144/105 H 99 O2 Del Method 12/12/24 12:31 12/12/24 12:24 Room Air 12/12/24 12:16 Room Air 12/12/24 11:50 12/12/24 11:18 Room Air Cardiovascular RRR, no murmur, no edema + capillary refill normal Pre-Sedation Airway Assessment Smoking Status: Never smoker Hx Sleep Apnea: No Short, Thick Neck: No Thyromental Distance: > or= 3.5 Finger Breadths Oral Cavity: + WNL Mallampati Class: II ASA: ASA1 NPO Status Date of Last Intake of Fluids: 12/12/24 Time of Last Intake of Fluids: 07:30 Date of Last Intake of Solid Food: 12/11/24 Time of Last Intake of Solid Foods: 20:00 Procedure Planning Contraindications for Sedation: none Notes The planned sedation has been discussed with the patient. Informed Consent was obtained. I have identified the patient, determined the appropriateness of sedation and have assessed the patient immediately prior to the procedure. All medicine(s) and interventions are by my order. [facility] Procedure Codes (Charges) Indication for Procedure Indication for procedure: Left hip dislocation reduction
--- NOTE | 2024-12-12 13:02 | Post Anesthesia Assessment ---
Date of Service December 12, 2024 Post Sedation Assessment Vital Signs Temp Pulse Pulse Resp BP BP Pulse Ox 12/12/24 12:31 145/83 H 12/12/24 12:24 75 94 12/12/24 12:16 77 22 151/99 H 93 12/12/24 11:50 77 12/12/24 11:18 36.6 C 78 18 144/105 H 99 O2 Del Method 12/12/24 12:31 12/12/24 12:24 Room Air 12/12/24 12:16 Room Air 12/12/24 11:50 12/12/24 11:18 Room Air Recovery Score Activity: Moves 4 extremities Respiration: Deep Breath/Cough Consciousness: Fully Awake Discharge Sedation Level of Care: Phase I Post Sedation Plan On clinical assessment, the patient appears to have tolerated the sedation without complications. Patient is recovering as anticipated. Patient will continue to be monitored by nursing and may be discharged when sedation discharge criteria are met per below protocol. Upon Completions of procedure up to 15 minutes continue every 5 minute vital signs and the P.A.R. score; then discharge to a Phase I or Fast Track to Phase II per the following guidelines: * Discharge Patient to appropriate Phase II area if PAR is 8 or greater or return to pre- procedure baseline. The post - procedure orders will be as directed. * If PAR score is less than 8 or not return to pre-procedure baseline then patient will follow Phase I monitoring till PAR is reached for Phase II. The Phase I may be done in procedure room or may call to secure a Phase I area. * If naloxone or flumazenil are used for reversal, hold in Phase I for continued monitoring from when last reversal dose was given for a minimum of 60 minutes or longer pending the nurse and/or physician discretion of patient condition before discharge to Phase II. Please call the Sedation Physician to re-evaluate and complete post-note for discharge to Phase II area. Do NOT discharge from procedure sedation or Phase 1 until post- sedation evaluation note is complete by procedure /sedation MD Sedation Discharge Instructions to be given to the patient at discharge to home. [facility] Procedure Codes (Charges) Indication for Procedure Indication for procedure: Left hip dislocation reduction
--- NOTE | 2024-12-12 13:35 | XRay Report ---
LEFT HIP 2 VIEWS CLINICAL HISTORY: Postreduction examination. FINDINGS: AP and crosstable lateral views of the left hip are compared to study performed earlier the same day 12/12/2024. The skeletal structures are osteopenic. There has been successful reduction of t he dislocated left hip arthroplasty with jain of near-anatomic alignment. No fracture is seen involving the left proximal femur or the visualized left hemipelvis. There is degenerative sclerosis of the left sacroiliac joint and the pubic symphysis. The overlying soft tissues are within normal li mits. A right hip arthroplasty is partially visualized on the crosstable lateral view. IMPRESSION: 1. Successful reduction of the dislocated left hip arthroplasty with jain of near-anatomic ali gnment. 2. No fracture is seen. Electronically signed by: Jeremias Madera M.D. 12/12/2024 1:34 PM
--- NOTE | 2024-12-12 14:47 | Orthopedic Progress Note ---
Date of Service December 12, 2024 Assessment & Plan (1) Dislocation, hip: * Case/imaging reviewed and discussed with Dr Zarate * Bedside closed reduction, see procedure note * Knee immobilizer applied * Disposition: TBD * Daily treatment: Physical Therapy/ Occupational Therapy per protocol * Weight bearing status: WBAT in KI * Pain control * Remainder care per primary team * Close outpatient follow-up with Dr Zarate team to discuss revision (2) Left foot drop: * Numbness to plantar surface of left foot noted pre-procedure, persistent numbness and unable to dorsiflex post-reduction * CT hip pending * XR foot unremarkable * May require admission due to ambulatory dysfunction * PT/OT eval * Splint applied to maintain ankle neutral, orthotics consulted for AFO fitting Subjective . Active Problems: S/p left prosthetic hip dislocation POD 0 74 y/o female s/p left prosthetic hip reduction. Repeat exam due to persistent dorsal foot numbness and limited dorsiflexion. During ambulation trial got to edge of bed but was unable to dorsiflex or control the left foot for ambulation, states it "rolled" in. Reports that numbness was present to dorsal foot prior to reduction and discussed this with EMT providers. Regarding the hip, pain is significantly improved and she is moving the joint without difficulty. Denies tingling or numbness of the posterior leg, plantar foot, or remainder of left leg. New hematoma to plantar surface of left foot that patient reports developed after her ambulation trial. Review of Systems All systems reviewed & are unremarkable except as noted in HPI & below. Physical Exam . * General: Alert and oriented, no acute distress * Constitutional: well-developed, well-nourished. * Respiratory: Normal respiratory effort, no distress * Gastrointestinal: No tenderness to palpation, no rigidity or guarding. * Skin: No rash or lesion. * Neurologic: Grossly normal * Musculoskeletal: Left leg with no obvious deformity. Hematoma to dorsal left foot. No tenderness of hip region. No pain with log roll. AROM hip flexion intact, no discomfort. AROM knee flexion intact strength 4/5 compared bilaterally, knee extension intact. AROM ankle plantar flexion intact. Unable to perform AROM ankle dorsiflexion. AROM toe flexion intact, AROM toe extension intact but weak. Sensation intact medial lower leg, plantar foot. Sensation diminished plantar foot and distal lateral leg, improves proximally. Results & Data Results & Data Laboratory Results . Diagnostic Findings . PG Care Time/CCT Total # of Minutes Spent Total Time Spent with Patient: Total time spent is greater than 50% in coordination of care (as documented) at patient's floor/unit and/or counseling patient: Coding Level of Care Code 72083 Post Operative Follow-Up Diagnoses Dislocation, hip S73.006A Left foot drop M21.372
--- NOTE | 2024-12-12 14:53 | XRay Report ---
XR foot LT min 3V routine CLINICAL HISTORY: foot drop COMPARISON: None FINDINGS: Bunion is present. There is a small chronic appearing osseous density adjacent to the late ral base of the fifth metatarsal, unfused ossicle versus sequela of old injury. No acute fracture or dislocation. There are mild degenerative changes at the first TMT joint and first MTP joint without e rosions. IMPRESSION: No acute fracture seen. ACT 112: Negative or not required by law. Electronically signed by: Juan David Bueno M.D. 12/12/2024 2:51 PM
[2024-12-12] MEDS: diphenhydrAMINE Capsule 25 MG CAP PO STA (15:49)
--- NOTE | 2024-12-12 16:07 | CT Scan Report ---
LEFT HIP CT WITHOUT CONTRAST CLINICAL HISTORY: post reduction. eval sciatic nerve COMPARISON STUDY: Left hip radiographs performed earlier today. TECHNIQUE: Axial images of the left hip were obtained without IV contrast. Sagittal and coronal refor mats were viewed. A dose lowering technique was utilized adhering to the principles of ALARA. FINDINGS: Alignment of left hip arthroplasty is anatomic post reduction. No periprosthetic fracture i s present. Evaluation of the adjacent soft tissues is compromised by streak artifact from the hardwar e but no abnormalities are identified. The sciatic nerve is not well-visualized by CT. Visualized por tions of the pelvis are unremarkable. There are no osseous lesions. IMPRESSION: 1. Anatomic alignment of the left hip arthroplasty status post reduction. No periprosthetic fracture. 2. Suboptimal evaluation of the adjacent soft tissues given artifact related to hardware but no abnor mality identified. The sciatic nerve is not well visualized and cannot be assessed by CT. ACT 112: Negative or not required by law. Electronically signed by: Gerson Bower M.D. 12/12/2024 4:05 PM
[2024-12-12] MEDS ORDERED: ALBUTEROL HFA 8 GM INHALER INH PRN (18:19)
[2024-12-12] MEDS: ARTIFICIAL TEARS OP SCH (18:40)
[2024-12-12] MEDS: ASPIRIN 81 MG ECTAB PO SCH (19:40)
[2024-12-13 08:07] VITALS: RESP 18
[2024-12-13] MEDS: lamoTRIgine 25 MG TAB PO SCH (09:20)
[2024-12-13] MEDS: LOSARTAN/HCTZ 50/12.5MG TAB PO SCH (09:20)
[2024-12-13] MEDS: METOPROLOL SUCC 25MG EXT REL TAB PO SCH (09:20)
--- NOTE | 2024-12-13 09:38 | Orthopedic Progress Note ---
Date of Service December 13, 2024 Assessment & Plan (1) Dislocation, hip: * Case/imaging reviewed and discussed with Dr Zarate * Bedside closed reduction, see procedure note * Knee immobilizer applied * Disposition: home * Daily treatment: Physical Therapy/ Occupational Therapy per protocol * Weight bearing status: WBAT in KI * Pain control * Remainder care per primary team * Close outpatient follow-up with Dr Zarate team to discuss revision (2) Left foot drop: * Numbness to plantar surface of left foot noted pre-procedure, persistent numbness and unable to dorsiflex post-reduction * CT hip demonstrates well aligned hip prosthesis * XR foot unremarkable * PT/OT eval * Splint applied to maintain ankle neutral, orthotics consulted for AFO fitting * Discussed suspected sciatic nerve irritation from her dislocated hip causing her drop foot and numbness symptoms, expect this to be transient and improve with time * Anticipate discharge home today after PT/OT eval Subjective Active Problems: S/p Closed reduction left CONRADO with new drop foot POD 1 74 y/o female s/p closed reduction of left CONRADO, with persistent drop foot that was present prior to reduction. Doing well overall, pain managed and improved function. Slight return of function to her toe extension, but persistent numbness to the dorsal foot. Increased soreness/spasm of left gluteal region. Denies fever/chills, chest pain/SOB, nausea/vomiting. Otherwise no complaints. Review of Systems All systems reviewed & are unremarkable except as noted in HPI & below. Physical Exam . * General: Alert and oriented, no acute distress * Constitutional: well-developed, well-nourished. * Respiratory: Normal respiratory effort, no distress * Gastrointestinal: No tenderness to palpation, no rigidity or guarding. * Skin: No rash or lesion. * Neurologic: Grossly normal * Musculoskeletal: Left leg with no obvious deformity. Hematoma to dorsal left foot. No tenderness of hip region. No pain with log roll. AROM hip flexion intact, no discomfort. AROM knee flexion intact strength 4/5 compared bilaterally, knee extension intact. AROM ankle plantar flexion intact. Unable to perform AROM ankle dorsiflexion. AROM toe flexion intact, AROM toe extension intact but weak and limited. Sensation intact medial lower leg, plantar foot. Sensation diminished plantar foot and distal lateral leg, improves proximally. Results & Data Results & Data Laboratory Results . Diagnostic Findings . Hip X-Ray 12/12/24 11:23 XR hip LT min 2V CLINICAL HISTORY: possible d/l COMPARISON: 09/15/2023 FINDINGS: There is posterior lateral dislocation of the left hip prosthesis. IMPRESSION: Dislocation of the left hip prosthesis. ACT 112: Negative or not required by law. Electronically signed by: Juan David Bueno M.D. 12/12/2024 12:18 PM Hip X-Ray 12/12/24 12:47 LEFT HIP 2 VIEWS CLINICAL HISTORY: Postreduction examination. FINDINGS: AP and crosstable lateral views of the left hip are compared to study performed earlier the same day 12/12/2024. The skeletal structures are osteopenic. There has been successful reduction of the dislocated left hip arthroplasty with presybeterian of near-anatomic alignment. No fracture is seen involving the left proximal femur or the visualized left hemipelvis. There is degenerative sclerosis of the left sacroiliac joint and the pubic symphysis. The overlying soft tissues are within normal limits. A right hip arthroplasty is partially visualized on the crosstable lateral view. IMPRESSION: 1. Successful reduction of the dislocated left hip arthroplasty with presybeterian of near-anatomic alignment. 2. No fracture is seen. Electronically signed by: Jeremias Madera M.D. 12/12/2024 1:34 PM Foot X-Ray 12/12/24 14:13 XR foot LT min 3V routine CLINICAL HISTORY: foot drop COMPARISON: None FINDINGS: Bunion is present. There is a small chronic appearing osseous density adjacent to the lateral base of the fifth metatarsal, unfused ossicle versus sequela of old injury. No acute fracture or dislocation. There are mild degenerative changes at the first TMT joint and first MTP joint without erosions. IMPRESSION: No acute fracture seen. ACT 112: Negative or not required by law. Electronically signed by: Juan David Bueno M.D. 12/12/2024 2:[address] 12/12/24 14:[address] WITHOUT CONTRAST CLINICAL HISTORY: post reduction. eval sciatic nerve COMPARISON STUDY: Left hip radiographs performed earlier today. TECHNIQUE: Axial images of the left hip were obtained without IV contrast. Sagittal and coronal reformats were viewed. A dose lowering technique was utilized adhering to the principles of ALARA. FINDINGS: Alignment of left hip arthroplasty is anatomic post reduction. No periprosthetic fracture is present. Evaluation of the adjacent soft tissues is compromised by streak artifact from the hardware but no abnormalities are identified. The sciatic nerve is not well-visualized by CT. Visualized portions of the pelvis are unremarkable. There are no osseous lesions. IMPRESSION: 1. Anatomic alignment of the left hip arthroplasty status post reduction. No periprosthetic fracture. 2. Suboptimal evaluation of the adjacent soft tissues given artifact related to hardware but no abnormality identified. The sciatic nerve is not well visualized and cannot be assessed by CT. ACT 112: Negative or not required by law. Electronically signed by: Gerson Bower M.D. 12/12/2024 4:05 PM PG Care Time/CCT Total # of Minutes Spent Total Time Spent with Patient: Total time spent is greater than 50% in coordination of care (as documented) at patient's floor/unit and/or counseling patient: [place] [address] SUB INP/OBS CARE 1/25MIN Patient Type Established Medical Decision Making Low Complexity Diagnoses Dislocation, hip S73.006A Left foot drop M21.372
[2024-12-13] MEDS ORDERED: METHOCARBAMOL 500 MG TABLET PO PRN (09:39)
[2024-12-13] MEDS: ACETAMINOPHEN 500 MG TAB PO PRN (11:18)
[2024-12-13 11:30] VITALS: BP 116/74; PULSE 73; TEMP 97.9; O2SAT 100
== END 2024-12-13 15:54 | disposition home or self-care (01) ==
LOC: 3N 11:12 → ED 11:12 → 3N 17:55